=== PATIENT | female | born 1970 | race Caucasian/White ===

== ENCOUNTER 2018-04-12 11:11 | Observation (INO) | payer MEDICAID, SELFPAY ==
[2018-04-09 10:53] LABS: Hematocrit 42.1 % (37-47); Hemoglobin 12.9 g/dl (12.0-15.0); Mean Corp Hgb Conc 30.6 g/gl (32-36); Mean Corpuscular Hgb 28.5 pg (27.0-32.0); Mean Corpuscular Volume 92.9 fL (81-99); Mean Platelet Vol. 10.4 fl (6.2-12.0); Platelet Count 324 K/mm3 (150-450); RBC Distribution Width CV 12.6 % (11.6-14.6); RBC Distribution Width SD 42.4 fl (35.1-43.9); Red Blood Count 4.53 M/mm3 (4.2-5.4); White Blood Count 8.7 K/mm3 (4.4-11.0)
[2018-04-09 10:55] LABS: Scan Indicated on CBC? Y/N NO
[2018-04-12] VITALS (13 sets, daily range): BP systolic 103–163; BP diastolic 63–84; PULSE 50–83; RESP 16–18; TEMP 36.3–37.2; O2SAT 95–100; BMI 21.2
--- NOTE | 2018-04-12 | HYST_PTH ---
PATIENT: LOY SANCHEZ LOC: [facility] U#:[id number] AGE/SX: 47/F ROOM: MS319 RE04/12/[address]: Dr. Yoli Morel MD : [id number] BED: 1 DIS: 04/14/2018 SPEC #: [id number] RECD: 04/12/18 14:33 STATUS: HUNTER REGiuliana #: [id number] MARYLOU: 04/12/18 00:[address]: Yoli Morel DEPT: SURGICAL PATHOLOGY RECD BY: Clifford Archer ENTERED: 04/12/18 14:33 SP TYPE: HYSTERECT OTHR DR: Dr. Argelia Ramires MD No Primary Care Phys Tissues: Uterus, NOS Procedures: Surgery Specimen Level V HEADER OPERATION: Vaginal hysterectomy, bilateral salpingectomy, uterosacral PRE-OP DIAGNOSIS: Menorrhagia, second-degree uterovaginal prolapse, midline cystocele TISSUE SUBMITTED: Uterus, bilateral fallopian tubes MICROSCOPIC DIAGNOSIS Uterus and fallopian tubes, vaginal hysterectomy and bilateral salpingectomy: Cervix ? chronic cystic cervicitis. Endometrium ? inactive endometrium. Focal fibrosis of endometrium. Myometrium ? intramural and submucosal leiomyomas (largest measuring 3.5 cm in greatest dimension). Focal superficial adenomyosis. Bilateral fallopian tubes - no pathologic diagnosis. T-shaped intrauterine device (gross only). SJ:eric 04/13/18 MICROSCOPIC DESCRIPTION Slides are reviewed. GROSS DESCRIPTION Received in fixative is one container labeled with the patient's name and designated uterus and bilateral fallopian tubes. The specimen consists of a hysterectomy specimen consisting of uterus with cervix and detached bilateral fallopian tubes. The uterus with cervix weighs 80 gm and measures 8 x 6 x 4.5 cm. The serosal surface is dale, glistening. The ectocervical mucosa is unremarkable. The external os is circular in contour. A two-prong suture is protruding below the external os. The endocervical canal measures 2.5 cm in length and the endocervical mucosa is unremarkable. The endometrial cavity is compressed to one side and measures 4 cm in length and up to 1.5 cm in width. The endometrial cavity contains a white T-shaped intrauterine device. The vertical arm is present in the endometrial cavity and the T-shaped arm of the IUD is embedded in the superficial portion of the myometrium. The vertical arm measures 3 cm in length and horizontal arm measures 3.5 cm in length and the two-prong suture measures 4 and 4.5 cm in length. The intrauterine device is intact. The endometrial cavity is compressed to one side due to presence of a submucosal to intramural serosal mass. Sections of the uterine wall reveal intramural to submucosal nodular masses. The largest mass measures 3.5 cm in greatest dimension. The uninvolved uterine wall measures up to 2 cm in thickness. Sections of these masses reveal dale whorled cut surfaces without areas of hemorrhage, necrosis or cystic degeneration. One of the fallopian tubes measure 4 cm in length and 0.5 cm in diameter. The fimbrial end is identified. The second fallopian tube measures 3 cm in length and 0.5 cm in diameter. Also present in the container the proximal portion of the second fallopian tube measuring 3.5 cm in length and 0.3 cm in diameter. Sections of both fallopian tubes reveal unremarkable cut surfaces. Band And Cuff Cutter sections are submitted in ten cassettes as follows: 1 - anterior cervix, 2 - posterior cervix, 3 & 4 - anterior uterine wall, section of smaller and intermediate sized nodular masses, 5 & 6 - posterior uterine wall, 7 & 8 ? largest nodular mass, 9 ? one fallopian tube, 10 ? second fallopian tube received in two pieces. / WINTER:eric 04/12/18 TC:1 CPT: 65717
[2018-04-12 08:20] LABS: Internal QC Validated? YES +Cl - CLEAR BKGD; Pregnancy, Urine Negative Negative
[2018-04-12] MEDS: Phenazopyridine 95 MG Tablet 190 MG PO (08:45)
[2018-04-12] MEDS: Celecoxib 200 MG Capsule PO (08:46)
[2018-04-12] MEDS: Gabapentin 600 MG Tablet PO (08:46)
[2018-04-12] MEDS: Acetaminophen 500 MG Tablet 1000 MG PO ×2 (08:46→22:05)
[2018-04-12] MEDS: Ondansetron 8 MG Tablet 16 MG PO (08:46)
--- NOTE | 2018-04-12 12:39 | PCM.OPRPT ---
Report of Operation Date of Procedure: 04/12/18 Pre-Operative Diagnosis: menorrhagia, second degree uterine prolapse, midline cystocele Post-Operative Diagnosis: same Surgery/Procedure Performed:: Total vaginal hysterectomy with bilateral salpingectomy, uterosacral ligament fixation, cystoscopy and episiotomy with repair Description of Surgical Findings:: Small uterus with uterine fibroid noted. Bilateral normal-appearing ovaries. Normal-appearing cervix. Normal-appearing tubes fingerprint expert: Argelia Ramires fingerprint expert: Shayan Gaona Type of Anesthesia:: General Anesthesiologist: Daina Saunders Special Medications: None Specimen's removed: Uterus, cervix, bilateral tubes Drains: Barnett catheter 350 cc yellow urine during the procedure Estimated Blood Loss (mL): 50 Fluids Replaced: 1500cc lr Description of Procedure: The patient was taken to the operating room where she was prepped and draped in the normal sterile fashion in the dorsal lithotomy position. A weighted speculum was placed in the vagina and the anterior lip of the cervix was grasped with a Angel clamp. The vaginal epithelium was infiltrated circumferentially around the cervix with 1% Xylocaine solution. An incision was made around the entire cervix with a scalpel and the vaginal epithelium was dissected back with blunt and sharp dissection. The anterior colpotomy incision was made sharply. Entry into the anterior cul-de-sac was confirmed by visualization of the uterine fundus and bowel behind the uterus. The vaginal introitus was so tight that we did not have significant visualization when we had one retractor and anteriorly to enter posteriorly. There is a tight band at the perineum and the decision was made to do PD anatomy to allow adequate visualization manipulation. The next prolapsed to approximately 1.5 cm beyond the hymenal ring so descent was adequate but vaginal conference was not. After the small episiotomy was made in the midline we are able to place an anterior posterior retractor and proceed The posterior colpotomy was made with the Johnson scissors. The posterior peritoneum was secured to the posterior vaginal cuff with an [id number] 0 Vicryl suture. The Roger retractor was placed in the posterior colpotomy incision. The uterosacral ligaments were clamped with Eda clamps transected and suture ligated on both sides and excellent hemostasis of the pedicles was noted. The cardinal ligaments were clamped transected and suture ligated. The remainder of the cardinal ligament with the uterine arteries was clamped transected and suture ligated. The utero-ovarian ligaments and tubes were clamped transected and suture ligated. The uterus was brought out through the colpotomy incision intact. The left ovary and tube appeared normal. A Sahra clamp was placed across the left tube and it was transected with the Metzenbaum scissors and suture ligated. The same procedure was performed on the contralateral side. The pedicles were all examined again and found to be hemostatic. At this point a Caro's culdoplasty was done with an 0 Vicryl suture. Entering the posterior vaginal cuff the peritoneum was secured reefed across the peritoneum to the right uterosacral ligament, back across the peritoneum to the left uterosacral ligament and back out through the posterior vaginal wall. The bowel was packed away with moist laparotomy sponges and the Breisky retractors were used to allow adequate visualization. On the lateral side a 2-0 PDS suture was placed through the anterior vaginal incision through the uterosacral ligament and back out through the posterior vaginal cuff. A 2-0 Prolene suture was then placed under the vaginal epithelium anteriorly, through slightly higher area of the uterosacral ligament and out through the posterior vaginal wall taking care not completely go through the vaginal epithelium. The same procedure was performed on the lateral side. A third suture was not placed on each side due to difficulty with visualization because of the small vaginal circumference. At this point cystoscopy was done and the bladder was intact and appeared normal. Both ureteral jets were identified. Then he was placed on the uterosacral ligament fixation sutures on both sides and both ureteral jets were again identified. The cystoscopy was completed and the Barnett catheter was replaced. Uterosacral ligament fixation sutures were tied down. The remainder of the vaginal cuff was then reapproximated horizontally with interrupted 0 Vicryl [id number] sutures. The Caro's sutures were tied down. The vaginal cuff was hemostatic and excellent support was noted. I closed the episiotomy with 3-0 Vicryl repeat suture in a running standard fashion. Care was taken to reapproximate the perineal body and then the vaginal and perineal epithelium were closed in a subcuticular fashion. The Barnett was left to straight drain. The vaginal sweep was completed by me. All sponge lap and needle counts were correct. Patient was awakened and taken to theher recovery room in stable condition. Grafts/Implants Used: None - Complications None
--- NOTE | 2018-04-12 12:47 | OP.PCM_ITS ---
Report of Operation Date of Procedure: 04/12/18 Pre-Operative Diagnosis: menorrhagia, second degree uterine prolapse, midline cystocele Post-Operative Diagnosis: same Surgery/Procedure Performed:: Total vaginal hysterectomy with bilateral salpingectomy, uterosacral ligament fixation, cystoscopy and episiotomy with repair Description of Surgical Findings:: Small uterus with uterine fibroid noted. Bilateral normal-appearing ovaries. Normal-appearing cervix. Normal-appearing tubes liquor bridge operator helper: Argelia Ramires liquor bridge operator helper: Shayan Gaona Type of Anesthesia:: General Anesthesiologist: Daina Saunders Special Medications: None Specimen's removed: Uterus, cervix, bilateral tubes Drains: Barnett catheter 350 cc yellow urine during the procedure Estimated Blood Loss (mL): 50 Fluids Replaced: 1500cc lr Description of Procedure: The patient was taken to the operating room where she was prepped and draped in the normal sterile fashion in the dorsal lithotomy position. A weighted speculum was placed in the vagina and the anterior lip of the cervix was grasped with a Angel clamp. The vaginal epithelium was infiltrated circumferentially around the cervix with 1% Xylocaine solution. An incision was made around the entire cervix with a scalpel and the vaginal epithelium was dissected back with blunt and sharp dissection. The anterior colpotomy incision was made sharply. Entry into the anterior cul-de-sac was confirmed by visualization of the uterine fundus and bowel behind the uterus. The vaginal introitus was so tight that we did not have significant visualization when we had one retractor and anteriorly to enter posteriorly. There is a tight band at the perineum and the decision was made to do PD anatomy to allow adequate visualization manipulation. The next prolapsed to approximately 1.5 cm beyond the hymenal ring so descent was adequate but vaginal conference was not. After the small episiotomy was made in the midline we are able to place an anterior posterior retractor and proceed The posterior colpotomy was made with the Johnson scissors. The posterior peritoneum was secured to the posterior vaginal cuff with an [id number] 0 Vicryl suture. The Roger retractor was placed in the posterior colpotomy incision. The uterosacral ligaments were clamped with Eda clamps transected and suture ligated on both sides and excellent hemostasis of the pedicles was noted. The cardinal ligaments were clamped transected and suture ligated. The remainder of the cardinal ligament with the uterine arteries was clamped transected and suture ligated. The utero-ovarian ligaments and tubes were clamped transected and suture ligated. The uterus was brought out through the colpotomy incision intact. The left ovary and tube appeared normal. A Sahra clamp was placed across the left tube and it was transected with the Metzenbaum scissors and suture ligated. The same procedure was performed on the contralateral side. The pedicles were all examined again and found to be hemostatic. At this point a Caro's culdoplasty was done with an 0 Vicryl suture. Entering the posterior vaginal cuff the peritoneum was secured reefed across the peritoneum to the right uterosacral ligament, back across the peritoneum to the left uterosacral ligament and back out through the posterior vaginal wall. The bowel was packed away with moist laparotomy sponges and the Breisky retractors were used to allow adequate visualization. On the lateral side a 2- 0 PDS suture was placed through the anterior vaginal incision through the uterosacral ligament and back out through the posterior vaginal cuff. A 2-0 Prolene suture was then placed under the vaginal epithelium anteriorly, through slightly higher area of the uterosacral ligament and out through the posterior vaginal wall taking care not completely go through the vaginal epithelium. The same procedure was performed on the lateral side. A third suture was not placed on each side due to difficulty with visualization because of the small vaginal circumference. At this point cystoscopy was done and the bladder was intact and appeared normal. Both ureteral jets were identified. Then he was placed on the uterosacral ligament fixation sutures on both sides and both ureteral jets were again identified. The cystoscopy was completed and the Barnett catheter was replaced. Uterosacral ligament fixation sutures were tied down. The remainder of the vaginal cuff was then reapproximated horizontally with interrupted 0 Vicryl xqeiiv-vu-xrhed sutures. The Caro's sutures were tied down. The vaginal cuff was hemostatic and excellent support was noted. I closed the episiotomy with 3-0 Vicryl repeat suture in a running standard fashion. Care was taken to reapproximate the perineal body and then the vaginal and perineal epithelium were closed in a subcuticular fashion. The Barnett was left to straight drain. The vaginal sweep was completed by me. All sponge lap and needle counts were correct. Patient was awakened and taken to theher recovery room in stable condition. Grafts/Implants Used: None - Complications None
[2018-04-12] MEDS: Ketorolac 30 MG/ML Syringe IV ×2 (13:00→17:46)
--- NOTE | 2018-04-12 15:08 | PCM.DC.VHY ---
Discharge Diet: No Restrictions Discharge Activity: Return to Normal Activity, May Not Drive - while taking narcotic pain medications., May Shower May resume sexual activity in: 6-8 weeks Call your doctor if your incision/area has: Continuous Slow Oozing, Sudden Increased Bleeding, Increased Pain/ Swelling, Increased Redness, Foul Smelling Discharge Call your doctor if you observe: Fever of 101 or Higher, Inability to urinate, Inability to have a bowel movement, Using more than one pad per hour Cleanse incision/area with: Soap & Water, - - Your incision has skin glue. It can get wet. Leave the skin glue on for 10-14 days or until it falls off on its own. Allergies/Adverse Reactions: Allergies hydrocodone bitartrate [From Vicodin] Allergy (Verified 12/10/15 17:41) Unknown ibuprofen Allergy (Verified 12/10/15 17:41) Unknown oxycodone HCl [From Percocet] Allergy (Verified 12/10/15 17:41) Unknown Penicillins Allergy (Verified 12/10/15 17:41) Unknown Medications to take at Discharge Tumeric 2,000 mg PO DAILY 04/05/18 Naproxen Sodium/Pseudoephedrin [Aleve-D Sinus and Cold Caplet] 1 each PO BID PRN 04/12/18 Primary Care Physician: Care Physician,No Primary [Primary Care Provider] - Please Follow Up With: Yoli Morel MD - [phone] When: 1-2 and 6 weeks or as needed
[2018-04-12] MEDS: Lactated Ringers 1,000 ML 125 ML IV (16:34)
[2018-04-12] MEDS: Docusate Sodium 100 MG Capsule PO (22:05)
[2018-04-12] MEDS: Senna/Docusate Sodium 1 Tablet PO (22:05)
[2018-04-12] MEDS: traMADol 50 MG Tablet PO (22:06)
[2018-04-12] MEDS: busPIRone 5 MG Tablet PO (22:13)
[2018-04-13] MEDS: Lactated Ringers 1,000 ML 125 ML IV (00:10)
[2018-04-13] MEDS: Ketorolac 30 MG/ML Syringe IV ×2 (00:59→06:28)
[2018-04-13] MEDS: HYDROmorphone 1 MG/ML Syringe IV (02:07)
[2018-04-13 03:09] VITALS: BP 100/59; PULSE 80; RESP 14; TEMP 36.5; O2SAT 97
[2018-04-13] MEDS: Acetaminophen 500 MG Tablet 1000 MG PO ×3 (06:28→21:09)
[2018-04-13] MEDS: busPIRone 5 MG Tablet PO ×2 (06:28→21:09)
[2018-04-13 06:33] LABS: Hematocrit 32.8 % (37-47); Hemoglobin 10.3 g/dl (12.0-15.0); Mean Corp Hgb Conc 31.4 g/gl (32-36); Mean Corpuscular Hgb 29.6 pg (27.0-32.0); Mean Corpuscular Volume 94.3 fL (81-99); Mean Platelet Vol. 10.5 fl (6.2-12.0); Platelet Count 233 K/mm3 (150-450); RBC Distribution Width CV 12.3 % (11.6-14.6); RBC Distribution Width SD 41.2 fl (35.1-43.9); Red Blood Count 3.48 M/mm3 (4.2-5.4)
[2018-04-13 06:34] LABS: Scan Indicated on CBC? Y/N NO
[2018-04-13 07:09] VITALS: O2SAT 97
--- NOTE | 2018-04-13 08:09 | PCM.PN.OB ---
Subjective: Pain under control this morning, small amount of vaginal bleeding. No chest pain or palpitations. Nausea or vomiting. Has been able to void. - Physical Exam General: Alert, Cooperative, No apparent distress Abdomen: Soft, Distended - Moderately, softly,, Tender - appropritely Extremities: Edema - 1+ Vital Signs Temp Pulse Resp BP Pulse Ox 97.7 F L 80 14 100/59 L 97 04/13/18 03:09 04/13/18 03:09 04/13/18 03:09 04/13/18 03:09 04/13/18 07:09 Oxygen Flow Rate (L/min) 2 Oxygen Delivery Method Room Air Weight: 54.431 kg Body Mass Index (BMI) 21.2 Intake and Output for Last 24 Hours 04/11/18 04/12/18 04/13/18 23:59 23:59 23:59 Intake Total 3231 / 3231 2704 / 2704 Output Total 425 / 425 1550 / 1550 Balance 2806 / 2806 1154 / 1154 Laboratory Tests Past 24 Hrs 04/12/18 04/13/18 08:12 06:04 WBC 16.0 H RBC 3.48 L Hgb 10.3 L Hct 32.8 L MCV 94.3 MCH 29.6 MCHC 31.4 L RDW 12.3 RDW Differential 41.2 Plt Count 233 MPV 10.5 Urine Test Negative Medical Necessity - Tobacco Use Smoking Status: Former smoker Assessment/Plan Postoperative day #1 status post total vaginal hysterectomy with uterosacral ligament fixation. Patient is doing well, she is hemodynamically stable. She is ambulating, tolerating regular diet, and has voided spontaneously. She is ready for discharge. Post op instructions reviewed. She has her prescriptions that I gave her in the office for pain control. Reviewed operative findings. Her questions were answered to her satisfaction
[2018-04-13 08:16] VITALS: BP 105/60; PULSE 67; RESP 18; TEMP 36.7; O2SAT 98
[2018-04-13] MEDS: traMADol 50 MG Tablet PO ×3 (08:24→21:10)
[2018-04-13] MEDS: Senna/Docusate Sodium 1 Tablet PO (08:24)
[2018-04-13] MEDS: Docusate Sodium 100 MG Capsule PO (08:25)
--- NOTE | 2018-04-13 11:25 | NURSING ---
Pt tearful at this time, complaining of pain. Pt also complains of nausea. Pt has not voided since myers removal, bladder scan done at this time and 175cc urine. Will call OB office to speak with physician.
[2018-04-13] MEDS: Ondansetron 4 MG/2 ML Vial IV (11:44)
[2018-04-13] MEDS: 0.9% NaCl Peripheral Flush Adult/Peds IV (11:44)
[2018-04-13 11:47] VITALS: BP 105/69; PULSE 60; RESP 18; TEMP 36.8; O2SAT 99
--- NOTE | 2018-04-13 11:50 | NURSING ---
Pt still tearful at this time. Zofran given. Pt states she feels foggy, VS WNL.
[2018-04-13] MEDS: Ketorolac 10 MG Tablet PO ×2 (12:27→17:12)
[2018-04-13 17:38] VITALS: BP 130/80; PULSE 65; RESP 18; TEMP 36.5; O2SAT 98
[2018-04-13 19:47] VITALS: BP 113/71; PULSE 62; RESP 16; TEMP 37.1; O2SAT 92
--- NOTE | 2018-04-13 19:53 | NURSING ---
Pt voiding 200cc, bladder scanned for 553cc. Pt states still feels like she has to void and is attempting to void again. will recheck bladder scan after.
--- NOTE | 2018-04-13 21:02 | NURSING ---
attempted to straight cath pt per MD orders bc bladder scan >500. Unsuccessful attempt, pt now up voiding again. Will bladder scan after this void.
[2018-04-14] MEDS: Ketorolac 10 MG Tablet PO ×2 (01:06→07:02)
--- NOTE | 2018-04-14 01:23 | NURSING ---
Pt voiding larger amounts, states feels like her bladder is empty now. States feels better than earlier. Will continue to monitor.
[2018-04-14 01:47] VITALS: BP 103/63; PULSE 73; RESP 18; TEMP 36.9; O2SAT 93
[2018-04-14] MEDS: busPIRone 5 MG Tablet PO (07:02)
[2018-04-14] MEDS: Acetaminophen 500 MG Tablet 1000 MG PO (07:03)
--- NOTE | 2018-04-14 07:40 | NURSING ---
Emptied patient's hat in toilet for 900cc of urine, patient states it was from 2 different voids. Pt states feels much better and like her bladder is empty, refused to be bladder scanned.
[2018-04-14 07:52] VITALS: BP 104/65; PULSE 63; RESP 18; TEMP 36.8; O2SAT 96
--- NOTE | 2018-04-14 08:42 | PCM.PN.OB ---
Subjective: Patient feels well. She is urinating better & denies concerns. - Physical Exam General: Alert, Oriented x3 Abdomen: Soft, Non Tender, Non-Distended Extremities: No Calf Tenderness Vital Signs Temp Pulse Resp BP Pulse Ox 98.2 F 63 18 104/65 96 04/14/18 07:52 04/14/18 07:52 04/14/18 07:52 04/14/18 07:52 04/14/18 07:52 Oxygen Flow Rate (L/min) 2 Oxygen Delivery Method Room Air Weight: 120 lb Body Mass Index (BMI) 21.2 Intake and Output for Last 24 Hours 04/12/18 04/13/18 04/14/18 23:59 23:59 23:59 Intake Total 3231 / 3231 6904 / 6904 440 / 440 Output Total 425 / 425 3125 / 3125 3250 / 3250 Balance 2806 / 2806 3779 / 3779 -2810 / -2810 Medical Necessity - Tobacco Use Smoking Status: Former smoker Assessment/Plan POD#2 s/p TVH with uterosacral suspension Plan for d/c home once blader scan confirms no urinary retention F/u as scheduled or PRN
[2018-04-14] MEDS: Docusate Sodium 100 MG Capsule PO (09:19)
[2018-04-14] MEDS: Senna/Docusate Sodium 1 Tablet PO (09:19)
[2018-04-14] MEDS: Enoxaparin 40 MG/0.4 ML Syringe SC (09:19)
--- NOTE | 2018-04-14 09:39 | NURSING ---
PT VOIDED 300ML. BLADDER SCAN = 287ML. DR Christian MIRANDA NOTIFIED. NEW ORDERS RECEIVED.
[2018-04-14 10:31] VITALS: BP 104/65; PULSE 63; RESP 18; TEMP 36.8; O2SAT 96
== END 2018-04-14 10:31 | disposition home or self-care (01) ==
LOC: MS2 04-13 06:54 → MS3 04-13 17:12
PROVIDERS: Obstetrics & Gynecology; Admitting Provider Obstetrics & Gynecology; Visit Provider Obstetrics & Gynecology
PROC: (CPT 58260; principal; 2018-04-12 09:15)
DX: N81.2 Incomplete uterovaginal prolapse (principal); F41.9 Anxiety disorder, unspecified; N81.11 Cystocele, midline; D25.1 Intramural leiomyoma of uterus; D25.0 Submucous leiomyoma of uterus; N80.0 Endometriosis of uterus; N72 Inflammatory disease of cervix uteri; Z87.891 Personal history of nicotine dependence
CPT/HCPCS: 00940; 57283; 58262; 36415; 81025; 85027; 86850; 86900; 88307; 96361; 96372; 96374; 96375; 96376; 99218; J7120; A4216; G0378; G0379; J2405

== ENCOUNTER 2018-09-22 15:52 | Emergency (ER) | payer MEDICAID, SELFPAY ==
[2018-09-22 15:53] VITALS: BP 117/76; PULSE 69; RESP 18; TEMP 36.4; O2SAT 100; BMI 22.8
--- NOTE | 2018-09-22 16:14 | ED.DCSUM_ITS ---
- ER Visit Summary Date of Service: 09/22/18 Chief Complaint: [Left eyelid redness and swelling] History of Present Illness: The patient is a 47 F [presents to the emergency department with complaint of left eyelid redness and swelling that started 2 days ago. Patient states that she used a new eye gel to her entire face the night before and she is not sure if it is related. Patient denies any fever. She denies any eye pain. She denies any visual changes.] Physical Examination: [HEENT-PERRLA, EOMI. Cranial nerves II through XII grossly intact. TMs clear. Mucous membranes moist. No adenopathy. Left lower eyelid does have soft tissue swelling and erythema. There is some cellulitic changes to the lower lid. Patient has painless extraocular eye movements. Conjunctiva normal. It appears to have a hordeolum to the left lower medial lid. Cardiovascular-regular rate and rhythm without murmur or ectopy Lungs-clear to auscultation, chest wall stable without crepitus or subcu emphysema Abdomen-normoactive bowel sounds, soft, nontender, no rebound or rigidity, no pe ritoneal signs. Extremities-intact ?4, normal range of motion, normal pulses, atraumatic] Test Results: [None indicated] Emergency Department Course and Treatment: [She was started on gentamicin ophthalmic ointment as well as Keflex.] Treatment Plan: [Patient advised to use warm compresses and will be given a p rescription for Keflex and gentamicin topical ointment. Patient will be advised to follow-up with ophthalmology] Disposition: [Discharged home in stable condition] Impression: [Hordeolum/stye left lower eyelid] This note was generated with [employer] dictation software. It may contain incorrect words, spelling, and punctuation that were not noted in review of the chart prior to signing ED Disposition - Plan for ED Patient: Chief Complaint: Eye Problem Referrals: Care Physician,No Primary [Primary Care Provider] -
--- NOTE | 2018-09-22 16:14 | ED.DEP ---
ED Disposition - Plan for ED Patient: Chief Complaint: Eye Problem Instructions: ED Hordeolum Prescriptions: Cephalexin [Keflex] 500 mg PO Q6 #40 cap Referrals: Care Physician,No Primary [Primary Care Provider] - Tyrone Gomes MD [STAFF PHYSICIAN] - 3-5 Days
[2018-09-22] MEDS: Cephalexin 250 MG Capsule 500 MG PO (17:00)
--- OUTSIDE RECORDS SUMMARY | 2018-11-16 21:21 | XMS RPT_ITS ---
:1970 Author Organization [facility] Care Team Providers Name Role Phone MARGE LEIJA Attending Unavailable MARGE LEIJA Attending Unavailable MARGE LEIJA Attending Unavailable CLIFF CINTRON Attending Unavailable MARGE LEIJA Attending Unavailable MARGE LEIJA Attending Unavailable Primay Care Physicia, No Primary Care Unavailable Marge Leija Attending Unavailable Marge Leija Referring Unavailable Cliff Ramires Consulting Unavailable Mareg Leija Admitting Unavailable Primay Care Physicia, No Primary Care Unavailable Bernie Collins Attending Unavailable PROBLEMS PROBLEMS No Problem Records FoundPROCEDURES PROCEDURES No Procedure Records FoundRESULTS RESULTS DISCHARGE INSTRUCTION Observed: 09/22/2018 Status: F Source: [place] 4:15 PM [facility] REPOSITORY [facility] Medical Records Department [address] [place] [address] Discharge Instruction 09/22/18 1614 MR#: [id number] Acct: [id number] Name: BRITTA NAJERA Rep #: [id number] : 1970 47 From: Bernie Collins DO PCP: Care Physician, No Primary Status: PRE ER ED Disposition - Plan for ED Patient: Chief Complaint: Eye Problem Instructions: ED Hordeolum Prescriptions: Cephalexin [Keflex] 500 mg PO Q6 #40 cap Referrals: Care Physician,No Primary [Primary Care Provider] - Tyrone Gomes MD [STAFF PHYSICIAN] - 3-5 Days What to do if you have Problems For any increased pain, shortness of breath, bleeding, nausea or vomiting, chest pain, or any unexpected problems, contact your Primary Care Provider. Call [facility] ([phone]) or report to the closest Emergency Room. Call 911 if necessary. 09/22/18 1615 <Electronically signed by Bernie Collins DO> Date Bernie Collins DO Cosigner Signature (If Indicated): Date CC: No Primary Care Physician EMERGENCY DEPARTMENT Observed: 09/22/2018 Status: F Source: [place] SUMMARY 4:14 PM [facility] Medical Records Department [address] [place] [address] Emergency Department Summary 09/22/18 1612 MR#: [id number] Acct: [id number] Name: BRITTA NAJERA Rep #: [id number] : 1970 47 From: Bernie Collins DO PCP: Care Physician, No Primary Status: PRE ER - ER Visit Summary Date of Service: 09/22/18 Chief Complaint: [Left eyelid redness and swelling] History of Present Illness: The patient is a 47 F [presents to the emergency department with complaint of left eyelid redness and swelling that started 2 days ago. Patient states that she used a new eye gel to her entire face the night before and she is not sure if it is related. Patient denies any fever. She denies any eye pain. She denies any visual changes.] Physical Examination: [HEENT-PERRLA, EOMI. Cranial nerves II through XII grossly intact. TMs clear. Mucous membranes moist. No adenopathy. Left lower eyelid does have soft tissue swelling and erythema. There is some cellulitic changes to the lower lid. Patient has painless extraocular eye movements. Conjunctiva normal. It appears to have a hordeolum to the left lower medial lid. Cardiovascular-regular rate and rhythm without murmur or ectopy Lungs-clear to auscultation, chest wall stable without crepitus or subcu emphysema Abdomen-normoactive bowel sounds, soft, nontender, no rebound or rigidity, no peritoneal signs. Extremities-intact 4, normal range of motion, normal pulses, atraumatic] Test Results: [None indicated] Emergency Department Course and Treatment: [She was started on gentamicin ophthalmic ointment as well as Keflex.] Treatment Plan: [Patient advised to use warm compresses and will be given a prescription for Keflex and gentamicin topical ointment. Patient will be advised to follow-up with ophthalmology] Disposition: [Discharged home in stable condition] Impression: [Hordeolum/stye left lower eyelid] This note was generated with [employer] dictation software. It may contain incorrect words, spelling, and punctuation that were not noted in review of the chart prior to signing ED Disposition - Plan for ED Patient: Chief Complaint: Eye Problem Referrals: Care Physician,No Primary [Primary Care Provider] - What to do if you have Problems For any increased pain, shortness of breath, bleeding, nausea or vomiting, chest pain, or any unexpected problems, contact your Primary Care Provider. Call [facility] ([phone]) or report to the closest Emergency Room. Call 911 if necessary. 09/22/18 1414 <Electronically signed by Bernie Collins DO> Date Bernie Collins DO Cosigner Signature (If Indicated): Date CC: No Primary Care Physician NAMITA Observed: 07/10/2018 Status: COMPLETED Source: [place] 2:00 PM [facility] RE[facility] Office Visit (WOOB) BRITTA NAJERA ([id number]) 1970 F Date Time Provider Department 07/10/18 2:00 PM MARGE LEIJA During your visit today, we recorded the following information about you: Blood pressure Weight 106/60 55.8 kg Marge Leija MD 07/10/2018 2:20 PM Signed Post-op visit Britta Najera is a 47 year old female who underwent TVH, bilateral salpingectomy, mccalls and uterosacral ligament fixation on 04/12/18 for prolapse, menorrhagia Her immediate post-op course was uncomplicated and she was discharged home from [facility] on post-op day #1. Is anxious something is falling down. Reynaldo. after being on her feet a lot. Symptoms since surgery: Fever/chills: No. Vaginal bleeding: No. Pain: some pelvic pressure Bladder complaints: No. Bowel complaints: some constipation Other issues: No. Reviewed and updated past medical, surgical, family, social history, medications and allergies. LMP 11/29/2013 GENERAL: pleasant, female in no apparent distress ABDOMEN: soft, non-tender and no masses INCISIONS: N/A PELVIC: external genitalia normal, normal Bartholin's glands, urethra, Justice's glands, no vulvar lesions, good vaginal support, physiologic discharge present, normal appearing perineal body and perianal region, cervix surgically absent, cuff intact, nontender, BIMANUAL: no adnexal masses, non-tender and uterus surgically absent NEURO: alert and oriented x3,exam grossly non-focal EXTREMITIES: normal Assessment: 47 year old doing well s/p TVH 1) Operative findings and pathology were reviewed with the patient and all questions were answered. Additional follow up or treatment indicated: none 2) Return for Annual exam or sooner as needed Marge Leija MD Referring Provider: SELF [200] Allergies As of Date: 07/10/2018 Noted Allergy Reaction FLAGYL (METRONIDAZOLE HCL) 06/18/2005 PENICILLINS 06/18/2005 16 - Unknown Comments: bloating, IBUPROFEN 11/15/2013 2 - Rash Comments: but can take naproxyn, gets cysts LEXAPRO (ESCITALOPRAM OXALATE) 06/18/2005 5 - Intolerance Comments: wt gain ZOLOFT (SERTRALINE HCL) 06/18/2005 5 - Intolerance Comments: wt gain Date Reviewed: 07/10/2018 Reviewed by: Marge Leija - Fully Assessed Reason for Visit: Post Op [174] Cmt: 6 week- weight gain Primary Visit Diagnosis:Postop check [Z09] Prescriptions as of 07/10/2018 Sig: ALEVE-D SINUS AND COLD ORAL Take by mouth. BUSPIRONE 5 MG TABLET Take 1 tablet by mouth three * Problem List As Of Date 07/10/2018 Noted Resolved Premenopausal menorrhagia [N92.4] INVALID FOR* IUD (intrauterine device) in place [Z97.5] INVALID FOR*12/20/2013 Complete uterine prolapse [N81.3] INVALID FOR* Cystocele, midline [N81.11] INVALID FOR* Encounter Status:Closed by MARGE LEIJA MD on 07/10/18 PROGRESS Observed: 07/10/2018 Status: COMPLETED Source: [place] 1:50 PM [facility] [place] REPOSITORY HNO ID: [id number] Author: Marge Leija Service: (none) Author Type: Physician Type: Progress Notes Filed: 07/10/2018 2:20 PM Note Text: Post-op visit Britta Najera is a 47 year old female who underwent TVH, bilateral salpingectomy, mccalls and uterosacral ligament fixation on 04/12/18 for prolapse, menorrhagia Her immediate post-op course was uncomplicated and she was discharged home from [facility] on post-op day #1. Is anxious something is falling down. Reynaldo. after being on her feet a lot. Symptoms since surgery: Fever/chills: No. Vaginal bleeding: No. Pain: some pelvic pressure Bladder complaints: No. Bowel complaints: some constipation Other issues: No. Reviewed and updated past medical, surgical, family, social history, medications and allergies. LMP 11/29/2013 GENERAL: pleasant, female in no apparent distress ABDOMEN: soft, non-tender and no masses INCISIONS: N/A PELVIC: external genitalia normal, normal Bartholin's glands, urethra, Justice's glands, no vulvar lesions, good vaginal support, physiologic discharge present, normal appearing perineal body and perianal region, cervix surgically absent, cuff intact, nontender, BIMANUAL: no adnexal masses, non-tender and uterus surgically absent NEURO: alert and oriented x3,exam grossly non-focal EXTREMITIES: normal Assessment: 47 year old doing well s/p TVH 1) Operative findings and pathology were reviewed with the patient and all questions were answered. Additional follow up or treatment indicated: none 2) Return for Annual exam or sooner as needed Marge Leija MD PROGRESS Observed: 05/22/2018 Status: COMPLETED Source: [place] 3:07 PM [facility] REPOSITORY HNO ID: [id number] Author: Marge Leija Service: (none) Author Type: Physician Type: Progress Notes Filed: 05/22/2018 3:29 PM Note Text: DATE OF SERVICE: 05/22/2018 PROBLEM: Britta Najera presents for postop visit. SUBJECTIVE/INTERVAL HISTORY: Britta Najera reports that she feels well. No fever or chills. No shortness of breath, cough, or chest pain. No incisional redness, swelling, or drainage. Patient reports that her appetite is good. BM and urination ok. Has some skin at perinuem she is questioning if is healed. . OBJECTIVE: ABDOMEN: Abdomen soft, non-tender, no hepatosplenomegaly. PELVIC: External genitalia normal. Vagina normal on speculum exam. Uterus, cervix, adnexa surgically absent. No urethral, bladder or pelvic masses. Cuff smooth. Cul de sac negative on rectal exam. No rectal masses. Perineum intact. Some sutures still present at apex, no granulation tissue. Labium majorum and minorum ASSESSMENT: Post op visit s/p TVH, USLF PLAN: 1. Discussed results of pathology and implications with patient. 2. Postop restrictions reviewed. Marge Leija MD CNOV Observed: 05/22/2018 Status: COMPLETED Source: [place] 3:00 PM [facility] REPOSITORY Office Visit (WOOB) BRITTA NAJERA ([id number]) 1970 F Date Time Provider Department 05/22/18 3:00 PM MARGE LEIJA During your visit today, we recorded the following information about you: Blood pressure Weight 102/60 54.9 kg Marge Leija MD 05/22/2018 3:29 PM Signed DATE OF SERVICE: 05/22/2018 PROBLEM: Britta Najera presents for postop visit. SUBJECTIVE/INTERVAL HISTORY: Britta Najera reports that she feels well. No fever or chills. No shortness of breath, cough, or chest pain. No incisional redness, swelling, or drainage. Patient reports that her appetite is good. BM and urination ok. Has some skin at perinuem she is questioning if is healed. . OBJECTIVE: ABDOMEN: Abdomen soft, non-tender, no hepatosplenomegaly. PELVIC: External genitalia normal. Vagina normal on speculum exam. Uterus, cervix, adnexa surgically absent. No urethral, bladder or pelvic masses. Cuff smooth. Cul de sac negative on rectal exam. No rectal masses. Perineum intact. Some sutures still present at apex, no granulation tissue. Labium majorum and minorum ASSESSMENT: Post op visit s/p TVH, USLF PLAN: 1. Discussed results of pathology and implications with patient. 2. Postop restrictions reviewed. Marge Leija MD Referring Provider: SELF [200] Allergies As of Date: 05/22/2018 Noted Allergy Reaction FLAGYL (METRONIDAZOLE HCL) 06/18/2005 PENICILLINS 06/18/2005 16 - Unknown Comments: bloating, IBUPROFEN 11/15/2013 2 - Rash Comments: but can take naproxyn, gets cysts LEXAPRO (ESCITALOPRAM OXALATE) 06/18/2005 5 - Intolerance Comments: wt gain ZOLOFT (SERTRALINE HCL) 06/18/2005 5 - Intolerance Comments: wt gain Date Reviewed: 05/22/2018 Reviewed by: Marge Leija - Fully Assessed Primary Visit Diagnosis:Postop check [Z09] Prescriptions as of 05/22/2018 Sig: ALEVE-D SINUS AND COLD ORAL Take by mouth. BUSPIRONE 5 MG TABLET Take 1 tablet by mouth three * Problem List As Of Date 05/22/2018 Noted Resolved Premenopausal menorrhagia [N92.4] INVALID FOR* IUD (intrauterine device) in place [Z97.5] INVALID FOR*12/20/2013 Complete uterine prolapse [N81.3] INVALID FOR* Cystocele, midline [N81.11] INVALID FOR* Medications Discontinued During This Encounter tramadol HCl (TRAMADOL ORAL) 05/22/2018 Class: Historical Med Route: ORAL Sig: Take by mouth. Disc: Course of therapy completed levonorgestrel (MIRENA) 20 mcg/24 hr* 05/22/2018 Class: Historical Med Route: INTRAUTERINE Si Each by INTRAUTERINE route one time only. Disc: Course of therapy completed Encounter Status:Closed by MARGE LEIJA MD on 05/22/18 CNOV Observed: 04/30/2018 Status: COMPLETED Source: [place] 3:15 PM [facility] REPOSITORY Office Visit (WOOB) BRITTA NAJERA ([id number]) 1970 F Date Time Provider Department 04/30/18 3:15 PM CLIFF CINTRON WOOB During your visit today, we recorded the following information about you: Blood pressure Weight 94/50 53.5 kg Cliff Ramires MD 04/30/2018 3:39 PM Signed SUBJECTIVE: 47 year old female presents for 2 week post-op exam. Was concerned with vaginal tissue tearing open and having some discharge. Pt denies pain. OBJECTIVE: Incision: episiotomy site healing well- no signs of infection. Non tender to palpation. Gen: female in NAD PLAN: RTO for 6 week check I have reviewed and updated past medical and surgical history, medications and allergies. Cliff Ramires MD Referring Provider: SELF [200] Allergies As of Date: 04/30/2018 Noted Allergy Reaction FLAGYL (METRONIDAZOLE HCL) 06/18/2005 PENICILLINS 06/18/2005 16 - Unknown Comments: bloating, IBUPROFEN 11/15/2013 2 - Rash Comments: but can take naproxyn, gets cysts LEXAPRO (ESCITALOPRAM OXALATE) 06/18/2005 5 - Intolerance Comments: wt gain ZOLOFT (SERTRALINE HCL) 06/18/2005 5 - Intolerance Comments: wt gain Date Reviewed: 04/23/2018 Reviewed by: Marge Leija - Fully Assessed Reason for Visit: Post Op [174] Cmt: feels like the incision is open Primary Visit Diagnosis:Post-operative state [Z98.890] Prescriptions as of 04/30/2018 Sig: TRAMADOL ORAL Take by mouth. ALEVE-D SINUS AND COLD ORAL Take by mouth. BUSPIRONE 5 MG TABLET Take 1 tablet by mouth three * NAPROXEN 500 MG TABLET Take 1 tablet by mouth three * LEVONORGESTREL 20 MCG/24 HR (* 1 Each by INTRAUTERINE route * Problem List As Of Date 04/30/2018 Noted Resolved Premenopausal menorrhagia [N92.4] INVALID FOR* IUD (intrauterine device) in place [Z97.5] INVALID FOR*12/20/2013 Complete uterine prolapse [N81.3] INVALID FOR* Cystocele, midline [N81.11] INVALID FOR* Encounter Status:Closed by CLIFF SORTO MD on 04/30/18 PROGRESS Observed: 04/30/2018 Status: COMPLETED Source: [place] 2:54 PM [facility] REPOSITORY HNO ID: [id number] Author: Cliff Sorto Service: (none) Author Type: Physician Type: Progress Notes Filed: 04/30/2018 3:39 PM Note Text: SUBJECTIVE: 47 year old female presents for 2 week post-op exam. Was concerned with vaginal tissue tearing open and having some discharge. Pt denies pain. OBJECTIVE: Incision: episiotomy site healing well- no signs of infection. Non tender to palpation. Gen: female in NAD PLAN: RTO for 6 week check I have reviewed and updated past medical and surgical history, medications and allergies. Cliff Ramires MD CNOV Observed: 04/23/2018 Status: COMPLETED Source: [place] 10:10 AM [facility] Office Visit (WOOB) BRITTA NAJERA ([id number]) 1970 F Date Time Provider Department 04/23/18 10:10 AM MARGE LEIJA WOOB During your visit today, we recorded the following information about you: Blood pressure Weight 110/68 53.3 kg Marge Leija MD 04/23/2018 10:27 AM Signed DATE OF SERVICE: 04/23/2018 PROBLEM: Britta Najera presents for postop visit. SURGERY AND DATE: Vaginal Hysterectomy, Bilateral Salpingectomy, Uterosacral on 04/12/18 PATHOLOGY: benign, pending SUBJECTIVE/INTERVAL HISTORY: Britta Najera reports that she feels well. No fever or chills. No shortness of breath, cough, or chest pain. No incisional redness, swelling, or drainage. Patient reports that her appetite is good. OBJECTIVE: general- awake, alert, NAD ASSESSMENT: postop TVH, bilateral salpingectomy, USLF, Caro's culdoplasty PLAN: 1. Discussed results of pathology and implications with patient. 2. Postop restrictions reviewed. Marge Leija MD Referring Provider: SELF [200] Allergies As of Date: 04/23/2018 Noted Allergy Reaction FLAGYL (METRONIDAZOLE HCL) 06/18/2005 PENICILLINS 06/18/2005 16 - Unknown Comments: bloating, IBUPROFEN 11/15/2013 2 - Rash Comments: but can take naproxyn, gets cysts LEXAPRO (ESCITALOPRAM OXALATE) 06/18/2005 5 - Intolerance Comments: wt gain ZOLOFT (SERTRALINE HCL) 06/18/2005 5 - Intolerance Comments: wt gain Date Reviewed: 04/23/2018 Reviewed by: Marge Leija - Fully Assessed Reason for Visit: Post Op [174] Primary Visit Diagnosis:Postop check [Z09] Prescriptions as of 04/23/2018 Sig: TRAMADOL ORAL Take by mouth. ALEVE-D SINUS AND COLD ORAL Take by mouth. BUSPIRONE 5 MG TABLET Take 1 tablet by mouth three * NAPROXEN 500 MG TABLET Take 1 tablet by mouth three * LEVONORGESTREL 20 MCG/24 HR (* 1 Each by INTRAUTERINE route * Problem List As Of Date 04/23/2018 Noted Resolved Premenopausal menorrhagia [N92.4] INVALID FOR* IUD (intrauterine device) in place [Z97.5] INVALID FOR*12/20/2013 Complete uterine prolapse [N81.3] INVALID FOR* Cystocele, midline [N81.11] INVALID FOR* Encounter Status:Closed by MARGE LEIJA MD on 04/23/18 PROGRESS Observed: 04/23/2018 Status: COMPLETED Source: [place] 10:00 AM [facility] REPOSITORY HNO ID: [id number] Author: Marge Leija Service: (none) Author Type: Physician Type: Progress Notes Filed: 04/23/2018 10:27 AM Note Text: DATE OF SERVICE: 04/23/2018 PROBLEM: Britta Najera presents for postop visit. SURGERY AND DATE: Vaginal Hysterectomy, Bilateral Salpingectomy, Uterosacral on 04/12/18 PATHOLOGY: benign, pending SUBJECTIVE/INTERVAL HISTORY: Britta Najera reports that she feels well. No fever or chills. No shortness of breath, cough, or chest pain. No incisional redness, swelling, or drainage. Patient reports that her appetite is good. OBJECTIVE: general- awake, alert, NAD ASSESSMENT: postop TVH, bilateral salpingectomy, USLF, Caro's culdoplasty PLAN: 1. Discussed results of pathology and implications with patient. 2. Postop restrictions reviewed. Marge Leija MD CBC-COMPLETE BLOOD CNT Collected: 04/13/2018 Status: F Source: [place] NO DIFF 6:04 AM [facility] REPOSITORY TYPE CODE TESTS RESULT OUT OF RANGE REFERENCE UNITS LAB L100.1000 4.4-11.0 K/mm3 High WBC 16.0 LAB L100.1200 4.2-5.4 M/mm3 Low RBC 3.48 LAB L100.1300 12.0-15.0 g/dl Low HGB 10.3 LAB L100.1400 37-47 % Low HCT 32.8 LAB L100.1500 81-99 fL Normal MCV 94.3 LAB L100.1600 27.0-32.0 pg Normal MCH 29.6 LAB L100.1700 32-36 g/gl Low MCHC 31.4 LAB L100.1810 11.6-14.6 % Normal RDW CV 12.3 LAB L100.1820 35.1-43.9 fl Normal RDW SD 41.2 LAB L100.1900 150-450 K/mm3 Normal PLT 233 LAB L100.2000 6.2-12.0 fl Normal MPV 10.5 Performed By: #### L100.0500 #### [facility] [address] [place], [address] PROGRESS Observed: 04/12/2018 Status: COMPLETED Source: [place] 6:51 PM [facility] [place] REPOSITORY HNO ID: [id number] Author: Marge Leija Service: (none) Author Type: Physician Type: Progress Notes Filed: 04/12/2018 6:54 PM Note Text: Patient underwent total vaginal hysterectomy with bilateral salpingectomy, episiotomy with repair in order to allow adequate vaginal access, uterosacral ligament fixation, Caro's culdoplasty and cystoscopy today at [facility]. Patient tolerated the procedure well. Pathology is pending. She will likely be discharged home tomorrow. Marge Leija MD DISCHARGE INSTRUCTION Observed: 04/12/2018 Status: F Source: [place] 3:09 PM [facility] Medical Records Department [address] [place] [address] Instructions for Home/Discharge Instructions 04/12/18 1508 MR#: [id number] Acct: [id number] Name: BRITTA NAJERA Rep #: [id number] : 1970 47 From: Marge Leija MD PCP: Care Physician, No Primary Status: REG [facility] Discharge Diet: No Restrictions Discharge Activity: Return to Normal Activity, May Not Drive - while taking narcotic pain medications., May Shower May resume sexual activity in: 6-8 weeks Call your doctor if your incision/area has: Continuous Slow Oozing, Sudden Increased Bleeding, Increased Pain/ Swelling, Increased Redness, Foul Smelling Discharge Call your doctor if you observe: Fever of 101 or Higher, Inability to urinate, Inability to have a bowel movement, Using more than one pad per hour Cleanse incision/area with: Soap AND Water, - - Your incision has skin glue. It can get wet. Leave the skin glue on for 10-14 days or until it falls off on its own. Allergies/Adverse Reactions: Allergies hydrocodone bitartrate [From Vicodin] Allergy (Verified 12/10/15 17:41) Unknown ibuprofen Allergy (Verified 12/10/15 17:41) Unknown oxycodone HCl [From Percocet] Allergy (Verified 12/10/15 17:41) Unknown Penicillins Allergy (Verified 12/10/15 17:41) Unknown Medications to take at Discharge Tumeric 2,000 mg PO DAILY 04/05/18 Naproxen Sodium/Pseudoephedrin [Aleve-D Sinus and Cold Caplet] 1 each PO BID PRN 04/12/18 Primary Care Physician: Care Physician,No Primary [Primary Care Provider] - Please Follow Up With: Marge Leija MD - [phone] When: 1-2 and 6 weeks or as needed 04/12/18 6507 <Electronically signed by Marge Leija MD> Date Marge Leija MD CC: No Primary Care Physician; Cliff Ramires MD OPERATIVE REPORT Observed: 04/12/2018 Status: F Source: [place] 12:47 PM [facility] RE[facility] Medical Records Department [address] [place] [address] Operative Report 04/12/18 1239 MR#: [id number] Acct: [id number] Name: BRITTA NAJERA Rep #: [id number] : 1970 47 From: Marge Leija MD PCP: Care Physician, No Primary Status: REG [facility] Y Location: [place] [address] Report of Operation Date of Procedure: 04/12/18 Pre-Operative Diagnosis: menorrhagia, second degree uterine prolapse, midline cystocele Post-Operative Diagnosis: same Surgery/Procedure Performed:: Total vaginal hysterectomy with bilateral salpingectomy, uterosacral ligament fixation, cystoscopy and episiotomy with repair Description of Surgical Findings:: Small uterus with uterine fibroid noted. Bilateral normal- appearing ovaries. Normal-appearing cervix. Normal-appearing tubes membership sales manager: Cliff Ramires membership sales manager: Shayan Gaona student Type of Anesthesia:: General Anesthesiologist: Daina Saunders Special Medications: None Specimen's removed: Uterus, cervix, bilateral tubes Drains: Barnett catheter 350 cc yellow urine during the procedure Estimated Blood Loss (mL): 50 Fluids Replaced: 1500cc lr Description of Procedure: The patient was taken to the operating room where she was prepped and draped in the normal sterile fashion in the dorsal lithotomy position. A weighted speculum was placed in the vagina and the anterior lip of the cervix was grasped with a Angel clamp. The vaginal epithelium was infiltrated circumferentially around the cervix with 1% Xylocaine solution. An incision was made around the entire cervix with a scalpel and the vaginal epithelium was dissected back with blunt and sharp dissection. The anterior colpotomy incision was made sharply. Entry into the anterior cul-de-sac was confirmed by visualization of the uterine fundus and bowel behind the uterus. The vaginal introitus was so tight that we did not have significant visualization when we had one retractor and anteriorly to enter posteriorly. There is a tight band at the perineum and the decision was made to do PD anatomy to allow adequate visualization manipulation. The next prolapsed to approximately 1.5 cm beyond the hymenal ring so descent was adequate but vaginal conference was not. After the small episiotomy was made in the midline we are able to place an anterior posterior retractor and proceed The posterior colpotomy was made with the Johnson scissors. The posterior peritoneum was secured to the posterior vaginal cuff with an [id number] 0 Vicryl suture. The Roger retractor was placed in the posterior colpotomy incision. The uterosacral ligaments were clamped with Eda clamps transected and suture ligated on both sides and excellent hemostasis of the pedicles was noted. The cardinal ligaments were clamped transected and suture ligated. The remainder of the cardinal ligament with the uterine arteries was clamped transected and suture ligated. The utero- ovarian ligaments and tubes were clamped transected and suture ligated. The uterus was brought out through the colpotomy incision intact. The left ovary and tube appeared normal. A Sahra clamp was placed across the left tube and it was transected with the Metzenbaum scissors and suture ligated. The same procedure was performed on the contralateral side. The pedicles were all examined again and found to be hemostatic. At this point a Caro's culdoplasty was done with an 0 Vicryl suture. Entering the posterior vaginal cuff the peritoneum was secured reefed across the peritoneum to the right uterosacral ligament, back across the peritoneum to the left uterosacral ligament and back out through the posterior vaginal wall. The bowel was packed away with moist laparotomy sponges and the Breisky retractors were used to allow adequate visualization. On the lateral side a 2-0 PDS suture was placed through the anterior vaginal incision through the uterosacral ligament and back out through the posterior vaginal cuff. A 2-0 Prolene suture was then placed under the vaginal epithelium anteriorly, through slightly higher area of the uterosacral ligament and out through the posterior vaginal wall taking care not completely go through the vaginal epithelium. The same procedure was performed on the lateral side. A third suture was not placed on each side due to difficulty with visualization because of the small vaginal circumference. At this point cystoscopy was done and the bladder was intact and appeared normal. Both ureteral jets were identified. Then he was placed on the uterosacral ligament fixation sutures on both sides and both ureteral jets were again identified. The cystoscopy was completed and the Barnett catheter was replaced. Uterosacral ligament fixation sutures were tied down. The remainder of the vaginal cuff was then reapproximated horizontally with interrupted 0 Vicryl [id number] sutures. The Caro's sutures were tied down. The vaginal cuff was hemostatic and excellent support was noted. I closed the episiotomy with 3-0 Vicryl repeat suture in a running standard fashion. Care was taken to reapproximate the perineal body and then the vaginal and perineal epithelium were closed in a subcuticular fashion. The Barnett was left to straight drain. The vaginal sweep was completed by me. All sponge lap and needle counts were correct. Patient was awakened and taken to theher recovery room in stable condition. Grafts/Implants Used: None - Complications None 04/12/18 [id number] <Electronically signed by Marge Leija MD> Date Marge Leija MD CC: No Primary Care Physician; Cliff Ramires MD; Marge Leija MD Signed ,URINE Collected: 04/12/2018 Status: F Source: [place] 8:12 AM [facility] TYPE CODE TESTS RESULT OUT OF REFERENCE UNITS RANGE LAB L400.8000 Negative Normal HCGUQUAL Negative Result Comment: Very dilute urine specimens, as indicated by a low specific gravity, may not contain customer counter representative levels of hCG. If is still suspected, a first morning urine specimen should be collected 48 hours later and tested. Performed By: #### L400.7600 #### [facility] [address] [place], [address] CNOP Observed: 04/12/2018 Status: COMPLETED Source: [place] 12:00 AM [facility] REPOSITORY Operative Note (Enc) (WOOB) Progress Notes: Marge Leija MD 04/12/2018 6:54 PM Signed Patient underwent total vaginal hysterectomy with bilateral salpingectomy, episiotomy with repair in order to allow adequate vaginal access, uterosacral ligament fixation, Caro's culdoplasty and cystoscopy today at [facility]. Patient tolerated the procedure well. Pathology is pending. She will likely be discharged home tomorrow. aMrge Leija MD Encounter Status:Closed by MARGE LEIJA MD on 04/12/18 HYSTERECTOMY SPECIMEN Observed: 04/12/2018 Status: F Source: [place] 12:00 AM [facility] REPOSITORY Patient: BRITTA NAJERA : 1970 (47/F) Acct Num: [id number] Phys: Marge Leija MD Unit Num: [id number] Loc: MS2 [id number] Specimen: [id number] Received: 04/12/181432 Spec Type: HYSTERECT TISSUES TISSUES: Uterus, NOS GROSS DESCRIPTION Received in fixative is one container labeled with the patient's name and designated uterus and bilateral fallopian tubes. The specimen consists of a hysterectomy specimen consisting of uterus with cervix and detached bilateral fallopian tubes. The uterus with cervix weighs 80 gm and measures 8 x 6 x 4.5 cm. The serosal surface is dale, glistening. The ectocervical mucosa is unremarkable. The external os is circular in contour. A two-prong suture is protruding below the external os. The endocervical canal measures 2.5 cm in length and the endocervical mucosa is unremarkable. The endometrial cavity is compressed to one side and measures 4 cm in length and up to 1.5 cm in width. The endometrial cavity contains a white T-shaped intrauterine device. The vertical arm is present in the endometrial cavity and the T-shaped arm of the IUD is embedded in the superficial portion of the myometrium. The vertical arm measures 3 cm in length and horizontal arm measures 3.5 cm in length and the two -prong suture measures 4 and 4.5 cm in length. The intrauterine device is intact. The endometrial cavity is compressed to one side due to presence of a submucosal to intramural serosal mass. Sections of the uterine wall reveal intramural to submucosal nodular masses. The largest mass measures 3.5 cm in greatest dimension. The uninvolved uterine wall measures up to 2 cm in thickness. Sections of these masses reveal dale whorled cut surfaces without areas of hemorrhage, necrosis or cystic degeneration. One of the fallopian tubes measure 4 cm in length and 0.5 cm in diameter. The fimbrial end is identified. The second fallopian tube measures 3 cm in length and 0.5 cm in diameter. Also present in the container the proximal portion of the second fallopian tube measuring 3.5 cm in length and 0.3 cm in diameter. Sections of both fallopian tubes reveal unremarkable cut surfaces. Partition Making Machine Operator sections are submitted in ten cassettes as follows: 1 - anterior cervix, 2 - posterior cervix, 3 AND 4 - anterior uterine wall, section of smaller and intermediate sized nodular masses, 5 AND 6 - posterior uterine wall, 7 AND 8 largest nodular mass, 9 one fallopian tube, 10 second fallopian tube received in two pieces. / WINTER: eric 04/12/18 TC:1 CPT: 03712 HEADER OPERATION: Vaginal hysterectomy, bilateral salpingectomy, uterosacral PRE-OP DIAGNOSIS: Menorrhagia, second-degree uterovaginal prolapse, midline cystocele TISSUE SUBMITTED: Uterus, bilateral fallopian tubes MICROSCOPIC DESCRIPTION Slides are reviewed. MICROSCOPIC DIAGNOSIS Uterus and fallopian tubes, vaginal hysterectomy and bilateral salpingectomy: Cervix chronic cystic cervicitis. Endometrium inactive endometrium. Focal fibrosis of endometrium. Myometrium intramural and submucosal leiomyomas (largest measuring 3.5 cm in greatest dimension). Focal superficial adenomyosis. Bilateral fallopian tubes - no pathologic diagnosis. T-shaped intrauterine device (gross only). WINTER:eric 04/13/18 Signed Sharan Hancock 04/13/18 <signature on file> Performed By: #### PHYST #### [facility] [address] [place], [address] CBC-COMPLETE BLOOD CNT Collected: 04/09/2018 Status: F Source: [place] NO DIFF 10:24 AM [facility] REPOSITORY TYPE CODE TESTS RESULT OUT OF RANGE REFERENCE UNITS LAB L100.1000 4.4-11.0 K/mm3 Normal WBC 8.7 LAB L100.1200 4.2-5.4 M/mm3 Normal RBC 4.53 LAB L100.1300 12.0-15.0 g/dl Normal HGB 12.9 LAB L100.1400 37-47 % Normal HCT 42.1 LAB L100.1500 81-99 fL Normal MCV 92.9 LAB L100.1600 27.0-32.0 pg Normal MCH 28.5 LAB L100.1700 32-36 g/gl Low MCHC 30.6 LAB L100.1810 11.6-14.6 % Normal RDW CV 12.6 LAB L100.1820 35.1-43.9 fl Normal RDW SD 42.4 LAB L100.1900 150-450 K/mm3 Normal PLT 324 LAB L100.2000 6.2-12.0 fl Normal MPV 10.4 Performed By: #### L100.0500 #### [facility] [address] [place], [address] TYPE AND SCREEN Collected: 04/09/2018 Status: F Source: [place] 10:24 AM [facility] REPOSITORY Order Comment: Surgery Date: 04/12/18 Hx of Preganancy in last 3 Months No Ever experience any problems with transfusion(s)? N Hx of Transfusion in last 3 Months N Reason for Type AND Screen/Red Cells: SURGERY SURGICAL PROCEDURE: HYSTO TYPE CODE TESTS RESULT OUT OF RANGE REFERENCE UNITS LAB B10.0800 B Normal BLOOD TYPE GEL POSITIVE LAB B100.4000 Normal Antibody NEGATIVE Screen Performed By: #### B101.7475 #### [facility] [address] [place], [address] PROGRESS Observed: 04/02/2018 Status: COMPLETED Source: [place] 10:20 AM [facility] REPOSITORY HNO ID: [id number] Author: Marge Leija Service: (none) Author Type: Physician Type: Progress Notes Filed: 04/02/2018 11:13 AM Note Text: Pre-Op History and Physical HPI: The patient is a 47 year old female presenting for pre-operative visit. She is scheduled for TVH, bilateral salpingectomy, USLF, possible anterior repair and cystoscopy, for menorrhagia, second degree uterovaginal prolapse and midline cystocele on 04/12/18. Procedure discussed along with risks, benefits and complications. Other alternatives discussed for management. Consent form signed? Yes. PAST MEDICAL HISTORY Diagnosis Date - Chronic depressive personality disorder PAST SURGICAL HISTORY Procedure Laterality Date - INSERT INTRAUTERINE DEVICE 08/2001, 12/24/2013 mirena Current Outpatient Prescriptions: naproxen sodium/pseudoephedrin (ALEVE-D SINUS AND COLD ORAL) Take by mouth. Disp: Rfl: levonorgestrel (MIRENA) 20 mcg/24 hr (5 years) IUD 1 Each by INTRAUTERINE route one time only. Disp: Rfl: cyclobenzaprine (FLEXERIL) 10 mg tablet Take 1 tablet by mouth three times daily as needed for Muscle Spasm. (Patient not taking: Reported on 12/12/2017 ) Disp: 20 tablet Rfl: 0 multivitamin tablet Take 1 tablet by mouth once daily. Disp: Rfl: buPROPion XL (WELLBUTRIN XL) 150 mg 24 hr tablet Take 1 tablet by mouth once daily. (Patient not taking: Reported on 04/02/2018 ) Disp: 30 tablet Rfl: 1 No current facility-administered medications for this visit. ALLERGIES: Flagyl [Metronidazole Hcl]; Ibuprofen; Lexapro [Escitalopram Oxalate]; Penicillins; Zoloft [Sertraline Hcl] PERSONAL HISTORY: Social History Marital status: Spouse name: Years of education: Number of children: 1 Occupational History Occupation Employer Comment [employer] Social History Main Topics Smoking status: Former Smoker Packs/day: 0.00 Years: 0.00 Smokeless tobacco: Never Used Comment: on occ. Alcohol use: Yes Comment: 1-2 beer week or less Drug use: No Sexual activity: Yes control/protection: IUD Comment: VALENCIA FAMILY HISTORY: FAMILY HISTORY Problem Relation Age of Onset - Hypertension Mother - Stroke Mother - Diabetes Mother - lump [OTHER] Mother removal benign breast - Breast Cancer Paternal Aunt REVIEW OF SYMPTOMS: GENERAL: denies fevers or chills ENDOCRINOLOGY: has not been on steroids Cardiology : denies palpitations or chest pain Respiratory: denies SOB or cough Hematology: denies history of prolonged bleeding or easy bruising or VTE Allergy: Denies history of personal or family history of allergy to anesthesia PHYSICAL EXAMINATION: VITALS: There were no vitals taken for this visit. GENERAL: The patient is well nourished, well hydrated in no acute distress. , The patient is oriented to time, place, and person. NECK: Supple. No lynphadenopathy, normal thyroid, no thyromegaly. LUNGS: Clear to auscultation bilaterally. no wheezes, rhonchi or rales HEART: Regular rate and rhythm, Normal heart sounds and No murmurs or gallops GENITALIA: Normal external genitalia, Urethral meatus normal, Bladder nontender, normal vagina and normal vaginal tone, normal cervix, normal uterus, size and consistency, normal adnexa without masses or tenderness and perineum WNL WET PREP: Not indicated Pap 2014- neg w/ neg Neg HRHPV Pelvic US done 07/2017: Report Summary: Overall impression: A bulky anteverted uterus with the measurements shown below. The endometrial echo measures 5.9 mm. The endometrial cavity appears normal. The myometrium appears normal. The right ovary is not visualized. The left ovary shows 2 simple sonolucent cysts, most likely physiologic cysts. There is no fluid in the cul de sac IMPRESSION: Multiple uterine fibroids. Recommendations / therapy: Clinical correlation. _ Indication: Pelvic pain. _ History: Gynecological History: Contraception: IUCD. _ Gynecological Ultrasonography: Uterus: normal, anteverted. Size: Longitudinal 88 mm. Anterio- posterior 58 mm. Transverse 54 mm. Volume: 144.3 ml. Fibroids: Fibroid 1: Size: 13 mm x 11 mm x 16 mm. Type: anterior. Position: fundus. Fibroid 2: Size: 15 mm x 12 mm x 16 mm. Type: anterior. Position: left mid uterus. ? Fibroid 3: Size: 49 mm x 35 mm x 43 mm. Type: posterior. Position: left mid uterus. Endometrium: endometrium clearly visualized. Endometrium thickness total: 5.9 mm. Right Ovary: not visible. Left Ovary: normal. Visible. Outline: smooth. Morphology: normal physiological changes. Left Ovary size: 31 mm x 27 mm x 25 mm. Volume: 11.0 ml. Cysts Left Ovary: Cyst 1: Mean value: 18 mm. D1: 23 mm. D2: 12 mm. D3: 19 mm. Volume: 3 ml. Simple cyst. Cyst 2: Mean value: 17 mm. D1: 20 mm. D2: 11 mm. D3: 21 mm. Volume: 2 ml. Simple cyst. Cul de Sac / Pouch of Constantine: no free fluid visible. IMPRESSION: for h/o menorrhagia ( no bleeding w/ mirena), second degree uterovaginal prolapse and midline cystocele PLAN: The risks/benefits/alternatives and personal involved for the planned TVH, bilateral salpingectomy, USLF, possible anterior repair and cystoscopy were reviewed with the patient. Her questions were answered to her satisfaction and she desires to proceed. Consent was signed. I reviewed with her postop instructions and expectations. I have reviewed and updated past medical and surgical history, medications and allergies Marge Leija M.D. NAMITA Observed: 04/02/2018 Status: COMPLETED Source: [place] 10:10 AM [facility] REPOSITORY Office Visit (WOOB) BRITTA NAJERA ([id number]) 1970 F Date Time Provider Department 04/02/18 10:10 AM MARGE LEIJA During your visit today, we recorded the following information about you: Pulse Respiration Blood pressure Weight 68/minute 16/minute 96/58 53.5 kg Height 1.6 m Marge Leija MD 04/02/2018 11:13 AM Signed Pre-Op History and Physical HPI: The patient is a 47 year old female presenting for pre- operative visit. She is scheduled for TVH, bilateral salpingectomy, USLF, possible anterior repair and cystoscopy, for menorrhagia, second degree uterovaginal prolapse and midline cystocele on 04/12/18. Procedure discussed along with risks, benefits and complications. Other alternatives discussed for management. Consent form signed? Yes. PAST MEDICAL HISTORY Diagnosis Date - Chronic depressive personality disorder PAST SURGICAL HISTORY Procedure Laterality Date - INSERT INTRAUTERINE DEVICE 08/2001, 12/24/2013 mirena Current Outpatient Prescriptions: naproxen sodium/pseudoephedrin (ALEVE-D SINUS AND COLD ORAL) Take by mouth. Disp: Rfl: levonorgestrel (MIRENA) 20 mcg/24 hr (5 years) IUD 1 Each by INTRAUTERINE route one time only. Disp: Rfl: cyclobenzaprine (FLEXERIL) 10 mg tablet Take 1 tablet by mouth three times daily as needed for Muscle Spasm. (Patient not taking: Reported on 12/12/2017 ) Disp: 20 tablet Rfl: 0 multivitamin tablet Take 1 tablet by mouth once daily. Disp: Rfl: buPROPion XL (WELLBUTRIN XL) 150 mg 24 hr tablet Take 1 tablet by mouth once daily. (Patient not taking: Reported on 04/02/2018 ) Disp: 30 tablet Rfl: 1 No current facility-administered medications for this visit. ALLERGIES: Flagyl [Metronidazole Hcl]; Ibuprofen; Lexapro [Escitalopram Oxalate]; Penicillins; Zoloft [Sertraline Hcl] PERSONAL HISTORY: Social History Marital status: Spouse name: Years of education: Number of children: 1 Occupational History Occupation Employer Comment [employer] Social History Main Topics Smoking status: Former Smoker Packs/day: 0.00 Years: 0.00 Smokeless tobacco: Never Used Comment: on occ. Alcohol use: Yes Comment: 1-2 beer week or less Drug use: No Sexual activity: Yes control/protection: IUD Comment: MIRENA FAMILY HISTORY: FAMILY HISTORY Problem Relation Age of Onset - Hypertension Mother - Stroke Mother - Diabetes Mother - lump [OTHER] Mother removal benign breast - Breast Cancer Paternal Aunt REVIEW OF SYMPTOMS: GENERAL: denies fevers or chills ENDOCRINOLOGY: has not been on steroids Cardiology : denies palpitations or chest pain Respiratory: denies SOB or cough Hematology: denies history of prolonged bleeding or easy bruising or VTE Allergy: Denies history of personal or family history of allergy to anesthesia PHYSICAL EXAMINATION: VITALS: There were no vitals taken for this visit. GENERAL: The patient is well nourished, well hydrated in no acute distress. , The patient is oriented to time, place, and person. NECK: Supple. No lynphadenopathy, normal thyroid, no thyromegaly. LUNGS: Clear to auscultation bilaterally. no wheezes, rhonchi or rales HEART: Regular rate and rhythm, Normal heart sounds and No murmurs or gallops GENITALIA: Normal external genitalia, Urethral meatus normal, Bladder nontender, normal vagina and normal vaginal tone, normal cervix, normal uterus, size and consistency, normal adnexa without masses or tenderness and perineum WNL WET PREP: Not indicated Pap 2013- neg w/ neg Neg HRHPV Pelvic US done 07/2017: Report Summary: Overall impression: A bulky anteverted uterus with the measurements shown below. The endometrial echo measures 5.9 mm. The endometrial cavity appears normal. The myometrium appears normal. The right ovary is not visualized. The left ovary shows 2 simple sonolucent cysts, most likely physiologic cysts. There is no fluid in the cul de sac IMPRESSION: Multiple uterine fibroids. Recommendations / therapy: Clinical correlation. Indication: Pelvic pain. History: Gynecological History: Contraception: IUCD. Gynecological Ultrasonography: Uterus: normal, anteverted. Size: Longitudinal 88 mm. Anterio- posterior 58 mm. Transverse 54 mm. Volume: 144.3 ml. Fibroids: Fibroid 1: Size: 13 mm x 11 mm x 16 mm. Type: anterior. Position: fundus. Fibroid 2: Size: 15 mm x 12 mm x 16 mm. Type: anterior. Position: left mid uterus. ? Fibroid 3: Size: 49 mm x 35 mm x 43 mm. Type: posterior. Position: left mid uterus. Endometrium: endometrium clearly visualized. Endometrium thickness total: 5.9 mm. Right Ovary: not visible. Left Ovary: normal. Visible. Outline: smooth. Morphology: normal physiological changes. Left Ovary size: 31 mm x 27 mm x 25 mm. Volume: 11.0 ml. Cysts Left Ovary: Cyst 1: Mean value: 18 mm. D1: 23 mm. D2: 12 mm. D3: 19 mm. Volume: 3 ml. Simple cyst. Cyst 2: Mean value: 17 mm. D1: 20 mm. D2: 11 mm. D3: 21 mm. Volume: 2 ml. Simple cyst. Cul de Sac / Pouch of Constantine: no free fluid visible. IMPRESSION: for h/o menorrhagia ( no bleeding w/ mirena), second degree uterovaginal prolapse and midline cystocele PLAN: The risks/benefits/alternatives and personal involved for the planned TVH, bilateral salpingectomy, USLF, possible anterior repair and cystoscopy were reviewed with the patient. Her questions were answered to her satisfaction and she desires to proceed. Consent was signed. I reviewed with her postop instructions and expectations. I have reviewed and updated past medical and surgical history, medications and allergies Marge Leija M.D. Referring Provider: SELF [[id number]] Allergies As of Date: 04/02/2018 Noted Allergy Reaction FLAGYL (METRONIDAZOLE HCL) 06/18/2005 PENICILLINS 06/18/2005 16 - Unknown Comments: bloating, IBUPROFEN 11/15/2013 2 - Rash Comments: but can take naproxyn, gets cysts LEXAPRO (ESCITALOPRAM OXALATE) 06/18/2005 5 - Intolerance Comments: wt gain ZOLOFT (SERTRALINE HCL) 06/18/2005 5 - Intolerance Comments: wt gain Date Reviewed: 04/02/2018 Reviewed by: Marge Leija - Fully Assessed Reason for Visit: Pre-Op Visit [1235] Primary Visit Diagnosis:Cystocele, midline [N81.11] Other Visit Diagnoses:Complete uterine prolapse [N81.3] Premenopausal menorrhagia [N92.4] Postoperative pain [G89.18] Preoperative examination [Z01.818] Order(s):busPIRone (BUSPAR) 5 mg tabletTake 1 tablet by mouth three times daily.Disp: 90 tabletRfl: 1 naproxen (NAPROSYN) 500 mg tabletTake 1 tablet by mouth three times daily as needed for Pain.Disp: 40 tabletRfl: 1 traMADol (ULTRAM) 50 mg tabletTake 1 tablet by mouth every 6 hours as needed for Pain for up to 5 days.Disp: 20 tabletRfl: 0 Prescriptions as of 04/02/2018 Sig: ALEVE-D SINUS AND COLD ORAL Take by mouth. LEVONORGESTREL 20 MCG/24 HR (* 1 Each by INTRAUTERINE route * BUSPIRONE 5 MG TABLET Take 1 tablet by mouth three * NAPROXEN 500 MG TABLET Take 1 tablet by mouth three * TRAMADOL 50 MG TABLET Take 1 tablet by mouth every * Problem List As Of Date 04/02/2018 Noted Resolved Premenopausal menorrhagia [N92.4] INVALID FOR* IUD (intrauterine device) in place [Z97.5] INVALID FOR*12/20/2013 Complete uterine prolapse [N81.3] INVALID FOR* Cystocele, midline [N81.11] INVALID FOR* Prescriptions ordered this encounter Disp Refills Start End BUSPIRONE 5 MG TABLET 90 t* 1 04/02/2018 Route: ORAL Sig: Take 1 tablet by mouth three times daily. NAPROXEN 500 MG TABLET 40 t* 1 04/02/2018 05/02/2018 Route: ORAL Sig: Take 1 tablet by mouth three times daily as needed for Pain. TRAMADOL 50 MG TABLET 20 t* 0 04/02/2018 04/07/2018 Class: Print RX Route: ORAL Sig: Take 1 tablet by mouth every 6 hours as needed for Pain for up to 5 days. Medications Discontinued During This Encounter multivitamin tablet 04/02/2018 Class: Historical Med Route: ORAL Sig: Take 1 tablet by mouth once daily. Disc: Reason for discontinue is not on file. buPROPion XL (WELLBUTRIN XL) 150 mg * 30 t* 1 01/06/2016 04/02/2018 Route: ORAL Sig: Take 1 tablet by mouth once daily. Patient not taking: Reported on 04/02/2018 Disc: Reason for discontinue is not on file. cyclobenzaprine (FLEXERIL) 10 mg tab* 20 t* 0 07/31/2017 04/02/2018 Route: ORAL Sig: Take 1 tablet by mouth three times daily as needed for Muscle Spasm. Patient not taking: Reported on 12/12/2017 Disc: Reason for discontinue is not on file. Encounter Status:Closed by MARGE LEIJA MD on 04/02/18 CNCO Observed: 12/25/2017 Status: COMPLETED Source: [place] 12:00 AM [facility] REPOSITORY Letter Text Marge Leija M.D. [facility] [address] [place], [place] [address] 12/25/2017 Britta Najera [address] [facility] [id number] [facility]#: [id number] Dear Britta, This letter is to confirm with you the dates and times of your upcoming surgery. You should have received a telephone call notifying you of this information. Surgery is scheduled on 04/12/18 at [facility]. Pre-operative appointment at Dr. Leija's office is scheduled on 04/02/18 at 10:10 a.m. [facility] will contact you by phone for pre-admission testing on 04/05/18 @ 1:00 p.m. 2 week follow-up appointment at Dr. Leija's office is scheduled on 04/23/18 @ 10:10 a.m. In addition, we will do a precertification approximately 1 week prior to your surgery. This means we will give your insurance company the medical information they need to make a predetermination. This is not a guarantee of payment and you will need to call your insurance company to verify benefits and coverage. If you are self-pay and/or receive [facility] Financial Assistance, and are having surgery at [facility], please call them at [phone] to make financial arrangements. We will only call you if there is a problem. If you have any questions, please feel free to call us at the phone number above. We appreciate your confidence in choosing the [facility] for your medical care and we look forward to seeing you at your next appointment. Thank you, [facility] PROGRESS Observed: 12/12/2017 Status: COMPLETED Source: [place] 1:38 PM [facility] REPOSITORY HNO ID: [id number] Author: Marge Leija Service: (none) Author Type: Physician Type: Progress Notes Filed: 12/25/2017 3:45 PM Note Text: HPI: Britta Najera is a 47 year old female who presents for problem visit for pelvic pressure and pain. Feeling like something wants to push out. . Worse after being on her feet and walking. 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 She denies any splinting for bowel movements or urination. She denies any significant stress incontinence. She denies any fecal incontinence. Pelvic pressure and prolapse. PAST MEDICAL HISTORY Diagnosis Date - Chronic depressive personality disorder PAST SURGICAL HISTORY Procedure Laterality Date - INSERT INTRAUTERINE DEVICE 08/2001, 12/24/2013 mirena FAMILY HISTORY Problem Relation Age of Onset - Hypertension Mother - Stroke Mother - Diabetes Mother - lump [OTHER] Mother removal benign breast - Breast Cancer Paternal Aunt Social History Marital status: Spouse name: Years of education: Number of children: 1 Occupational History Occupation Employer Comment [employer] Social History Main Topics Smoking status: Former Smoker Packs/day: 0.00 Years: 0.00 Smokeless status: Never Used Comment: on occ. Alcohol use: Yes Comment: 1-2 beer week or less Drug use: No Sexual activity: Yes control/protection: IUD Comment: MIRENA Current Outpatient Prescriptions: levonorgestrel (MIRENA) 20 mcg/24 hr (5 years) IUD 1 Each by INTRAUTERINE route one time only. cyclobenzaprine (FLEXERIL) 10 mg tablet Take 1 tablet by mouth three times daily as needed for Muscle Spasm. (Patient not taking: Reported on 12/12/2017 ) multivitamin tablet Take 1 tablet by mouth once daily. buPROPion XL (WELLBUTRIN XL) 150 mg 24 hr tablet Take 1 tablet by mouth once daily. No current facility-administered medications for this visit. Allergies As of Date: 12/12/2017 Allergen Noted Reaction FLAGYL [METRONIDAZOLE HCL] 06/18/2005 IBUPROFEN 11/15/2013 Rash LEXAPRO [ESCITALOPRAM OXALATE] 06/18/2005 PENICILLINS 06/18/2005 ZOLOFT [SERTRALINE HCL] 06/18/2005 Fully Assessed 12/12/2017 REVIEW OF SYSTEMS Abdomen: No bloating, early satiety, indigestion, or increased flatulence. No abdominal pain, nausea, vomiting, diarrhea, or constipation. Bladder: No dysuria, gross hematuria, urinary frequency, urinary urgency, or incontinence. Breast: No breast lumps, nipple d/c, overlying skin changes, redness or skin retraction. Allergies and current medication updated:Yes EXAM: There were no vitals taken for this visit. GENERAL: pleasant, female in no apparent distress HEENT: Normocephalic, atraumatic, mucus membranes moist and no lesions NECK: Supple, full range of motion, no adenopathy and thyroid normal ABDOMEN: soft, non-tender and no masses PELVIC: external genitalia normal, normal Bartholin's glands, urethra, Justice's glands, no vulvar lesions, good vaginal support, physiologic discharge present, normal appearing perineal body and perianal region, cystocele 2nd degree midlin, rectocele 1st degree, cervical prolapse 2nd degree BIMANUAL: no adnexal masses, non-tender and boggy, tender, mobile NEURO: alert and oriented x3,exam grossly non-focal EXTREMITIES: normal ASSESSMENT AND PLAN: Symptomatic midline cystocele, second-degree uterine prolapse. Declines pessary. Risks benefits and alternatives to various options were discussed with the patient, her questions were answered to her satisfaction she desires to proceed with definitive surgical therapy in the form of a total vaginal hysterectomy with bilateral salpingectomy, uterosacral ligament fixation, anterior repair and cystoscopy. Discussed with the patient risks of surgery as well as risk of recurrent prolapse. Discussed with her postop restrictions and expectations. Marge Leija MD CNOV Observed: 12/12/2017 Status: COMPLETED Source: [place] 1:30 PM [facility] REPOSITORY Office Visit (WOOB) BRITTA NAJERA ([id number]) 1970 F Date Time Provider Department 12/12/17 1:30 PM MARGE LEIJA WOOB During your visit today, we recorded the following information about you: Blood pressure Weight 94/52 54.9 kg Marge Leija MD 12/25/2017 3:45 PM Signed HPI: Britta Najera is a 47 year old female who presents for problem visit for pelvic pressure and pain. Feeling like something wants to push out. . Worse after being on her feet and walking. 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 She denies any splinting for bowel movements or urination. She denies any significant stress incontinence. She denies any fecal incontinence. Pelvic pressure and prolapse. PAST MEDICAL HISTORY Diagnosis Date - Chronic depressive personality disorder PAST SURGICAL HISTORY Procedure Laterality Date - INSERT INTRAUTERINE DEVICE 08/2001, 12/24/2013 mirena FAMILY HISTORY Problem Relation Age of Onset - Hypertension Mother - Stroke Mother - Diabetes Mother - lump [OTHER] Mother removal benign breast - Breast Cancer Paternal Aunt Social History Marital status: Spouse name: Years of education: Number of children: 1 Occupational History Occupation Employer Comment [employer] Social History Main Topics Smoking status: Former Smoker Packs/day: 0.00 Years: 0.00 Smokeless status: Never Used Comment: on occ. Alcohol use: Yes Comment: 1-2 beer week or less Drug use: No Sexual activity: Yes control/protection: IUD Comment: MIRENA Current Outpatient Prescriptions: levonorgestrel (MIRENA) 20 mcg/24 hr (5 years) IUD 1 Each by INTRAUTERINE route one time only. cyclobenzaprine (FLEXERIL) 10 mg tablet Take 1 tablet by mouth three times daily as needed for Muscle Spasm. (Patient not taking: Reported on 12/12/2017 ) multivitamin tablet Take 1 tablet by mouth once daily. buPROPion XL (WELLBUTRIN XL) 150 mg 24 hr tablet Take 1 tablet by mouth once daily. No current facility-administered medications for this visit. Allergies As of Date: 12/12/2017 Allergen Noted Reaction FLAGYL [METRONIDAZOLE HCL] 06/18/2005 IBUPROFEN 11/15/2013 Rash LEXAPRO [ESCITALOPRAM OXALATE] 06/18/2005 PENICILLINS 06/18/2005 ZOLOFT [SERTRALINE HCL] 06/18/2005 Fully Assessed 12/12/2017 REVIEW OF SYSTEMS Abdomen: No bloating, early satiety, indigestion, or increased flatulence. No abdominal pain, nausea, vomiting, diarrhea, or constipation. Bladder: No dysuria, gross hematuria, urinary frequency, urinary urgency, or incontinence. Breast: No breast lumps, nipple d/c, overlying skin changes, redness or skin retraction. Allergies and current medication updated:Yes EXAM: There were no vitals taken for this visit. GENERAL: pleasant, female in no apparent distress HEENT: Normocephalic, atraumatic, mucus membranes moist and no lesions NECK: Supple, full range of motion, no adenopathy and thyroid normal ABDOMEN: soft, non-tender and no masses PELVIC: external genitalia normal, normal Bartholin's glands, urethra, Justice's glands, no vulvar lesions, good vaginal support, physiologic discharge present, normal appearing perineal body and perianal region, cystocele 2nd degree midlin, rectocele 1st degree, cervical prolapse 2nd degree BIMANUAL: no adnexal masses, non-tender and boggy, tender, mobile NEURO: alert and oriented x3,exam grossly non-focal EXTREMITIES: normal ASSESSMENT AND PLAN: Symptomatic midline cystocele, second-degree uterine prolapse. Declines pessary. Risks benefits and alternatives to various options were discussed with the patient, her questions were answered to her satisfaction she desires to proceed with definitive surgical therapy in the form of a total vaginal hysterectomy with bilateral salpingectomy, uterosacral ligament fixation, anterior repair and cystoscopy. Discussed with the patient risks of surgery as well as risk of recurrent prolapse. Discussed with her postop restrictions and expectations. Marge Leija MD Referring Provider: SELF [200] Allergies As of Date: 12/12/2017 Noted Allergy Reaction FLAGYL (METRONIDAZOLE HCL) 06/18/2005 IBUPROFEN 11/15/2013 2 - Rash LEXAPRO (ESCITALOPRAM OXALATE) 06/18/2005 PENICILLINS 06/18/2005 ZOLOFT (SERTRALINE HCL) 06/18/2005 Date Reviewed: 12/12/2017 Reviewed by: Betty Thompson Ma - Fully Assessed Reason for Visit: Discussion [813] Cmt: cyst on ovaries- seen on u/s Primary Visit Diagnosis:Cystocele, midline [N81.11] Other Visit Diagnosis:Complete uterine prolapse [N81.3] Prescriptions as of 12/12/2017 Sig: LEVONORGESTREL 20 MCG/24 HR (* 1 Each by INTRAUTERINE route * CYCLOBENZAPRINE 10 MG TABLET Take 1 tablet by mouth three * Patient not taking: Reported on 12/12/2017 MULTIVITAMIN TABLET Take 1 tablet by mouth once d* BUPROPION XL 150 MG TAB Take 1 tablet by mouth once d* Problem List As Of Date 12/12/2017 Noted Resolved Premenopausal menorrhagia [N92.4] INVALID FOR* IUD (intrauterine device) in place [Z97.5] INVALID FOR*12/20/2013 Encounter Status:Closed by MARGE LEIJA MD on 12/25/17 ALLERGIES ALLERGIES DATE TYPE / NAME / CODE REACTION SEVERITY SOURCE CODE 09/22/2018 Drug hydrocodone Unknown Unknown [place] Allergy/41 bitartrate/[id number] Community [id number]( 55(RXNORM) [facility]) Repository 09/22/2018 Drug oxycodone Unknown Unknown [place] Allergy/41 HCl/[id number](RXNO Community [id number]([facility]) [facility]) Repository 09/22/2018 Drug Penicillins/[id number] Unknown Unknown [place] Allergy/41 476(RXNORM) Community [id number]([facility]) Repository 09/22/2018 Drug ibuprofen/[id number] Unknown Unknown [place] Allergy/41 7(RXNORM) Community [id number]([facility]) Repository 11/15/2013 DRUG IBUPROFEN RASH [place] INGREDI/41 Clinic Main [id number]([facility]) Repository 11/15/2013 DRUG IBUPROFEN RASH [place] INGREDI/41 Clinic Main [id number]([facility]) Repository 06/18/2005 Drug PENICILLINS UNKNOWN [place] Class/4195 Clinic Main [id number]([facility]) Repository 06/18/2005 DRUG ESCITALOPRAM INTOLERANCE [place] INGREDI/41 OXALATE Clinic Main [id number]([facility]) Repository 06/18/2005 DRUG SERTRALINE HCL INTOLERANCE [place] INGREDI/41 Clinic Main [id number]([facility]) Repository 06/18/2005 DRUG METRONIDAZOLE HCL [place] INGREDI/41 Clinic Main [id number]([facility]) Repository 06/18/2005 DRUG ESCITALOPRAM [place] INGREDI/41 OXALATE Clinic Main [id number]([facility]) Repository 06/18/2005 Drug PENICILLINS [place] Class/4195 Clinic Main [id number]([facility]) Repository 06/18/2005 DRUG SERTRALINE HCL [place] INGREDI/41 Clinic Main [id number]([facility]) Repository ENCOUNTERS ENCOUNTERS ADMIT/DISCHARGE ACCOUNT ADMITTING ENCOUNTER LOCATION SOURCE NUMBER CLASS 09/22/2018/12/01 [id number] Emergency [place] [facility] ing:ED Repository 07/10/2018/07/11/20 [id number] Ambulatory [address] Repository 05/22/2018/05/23/20 [id number] Ambulatory [address] [place] Repository 04/30/2018/05/01/20 [id number] Ambulatory [address] [place] Repository 04/23/2018/04/26/20 [id number] Ambulatory [address] Repository 04/12/2018/04/14/20 [id number] [place] Ambulatory [place] [facility] ing:[id number]: Repository [id number]: 1 04/02/2018/04/04/20 [id number] Ambulatory [address] Repository 12/12/2017/12/26/19 [id number] Ambulatory [address] Repository PAYERS PAYERS ENCOUNTER GUARANTOR PAYER SUBSCRIBER SOURCE 09/22/2018 BRITTA Awad Primary NOT GIVENUNK [place] [id number] Insurance:SELF PAY [place], [place] Number: Effective Repository [phone]: [phone]) Date:2018-09-22 [id number] () 04/12/2018 Britta Awad Primary Britta Babin [id number] Insurance:CARESOURCEP ImmelDOB: [facility] [place]: [id number] [id number] Repository 23399Pyq: [phone]) Date:2017-12-15P O [id number] () [address]ATTN: [place] [address]VN: 04/12/2018 Secondary NOT GIVENUNK [place] Insurance:SELF PAY [facility] Number: Effective Repository Date:2017-12-15
== END 2018-09-22 17:03 | disposition home or self-care (01) ==
PROVIDERS: Emergency Provider Emergency Medicine
DX: H00.015 Hordeolum externum left lower eyelid (principal)
CPT/HCPCS: 99283

== ENCOUNTER 2019-05-14 11:59 | Emergency (ER) | payer MEDICAID, SELFPAY ==
[2019-05-14 12:00] VITALS: BP 157/98; PULSE 89; RESP 16; TEMP 36.7; O2SAT 98; BMI 21.5
--- NOTE | 2019-05-14 12:14 | CT_ITS ---
STUDY: CT BRAIN WITHOUT CONTRAST REASON FOR EXAM: Female, 48 years old. Migraine, right eye droop RADIATION DOSAGE (If Supplied By Facility): CTDIvol = ( 60.81 ) mGy, DLP = ( 1044.28 ) mGycm TECHNIQUE: Transaxial CT imaging of the brain was performed without administration of intravenous contrast material. Individualized dose optimization techniques were used for this CT. COMPARISON: No relevant priors. FINDINGS: Normal soft tissue structures. Normal calvarium. Normal size ventricles and extra-axial spaces for the patient's age. Normal white matter tracts of the cerebral hemispheres. Normal basal ganglia and thalami. Normal brainstem. Normal cerebellum. There is no intracranial hemorrhage. There are no findings of an acute ischemic infarction. Normal visualized paranasal sinuses. CT/Brain/Head without Contrast IMPRESSION: Normal unenhanced CT scan of the brain. Electronically Signed: Gal Lockhart MD at 12:57 EDT , Service support ,
[2019-05-14] MEDS: Ketorolac 60 MG/2 ML Vial IM (12:23)
--- NOTE | 2019-05-14 12:33 | ED.VISSUMM ---
- ER Visit Summary Date of Service: 05/14/19 Chief Complaint: Headache, bilateral eyelid drooping History of Present Illness: The patient is a 48 F who presents with headache and bilateral eyelid drooping. This started 8 days ago. She had Botox instilled into her forehead and around the eyes for cosmetic purposes. After this was done she did have some drooping of her eyelids. She did have blurry vision which is improving. Her headache is in the front part of her head. Denies any diplopia. She has tried Aleve at home without any relief. Physical Examination: Vital signs reviewed. HEENT exam shows mild ptosis to the bilateral eyelids. Her pupils are equally round and reactive. Her extraocular motions are all intact and normal. Heart is regular rate and rhythm without murmurs. Lungs are clear to auscultation. Abdomen is soft and nontender. Extremities reveal no edema. Skin exam normal. Neurologic exam normal. NIH is 0 Test Results: CT head normal Emergency Department Course and Treatment: The patient has very mild ptosis of the bilateral eyelids. She has no blurry vision, her extraocular motions are intact and normal. This ptosis was likely due to the Botox she had injected into her forehead and by her eyes. This will resolve on its own. She was able to drive here without any difficulty. I gave her Toradol for her headache. She will follow-up with her doctor who did the Botox injections Treatment Plan: [] Disposition: Discharge Impression: Ptosis, medically induced This note was generated with [employer] dictation software. It may contain incorrect words, spelling, and punctuation that were not noted in review of the chart prior to signing ED Disposition - Plan for ED Patient: Referrals: Care Physician,No Primary [Primary Care Provider] -
--- NOTE | 2019-05-14 13:09 | ED.DEP ---
ED Disposition - Plan for ED Patient: Disposition: Home or Assisted Living Instructions: HEADACHE, Unspecified Referrals: Care Physician,No Primary [Primary Care Provider] -
== END 2019-05-14 13:19 | disposition home or self-care (01) ==
PROVIDERS: Emergency Provider Emergency Medicine
DX: H02.403 Unspecified ptosis of bilateral eyelids (principal)
CPT/HCPCS: 70450; 96372; 99282

== ENCOUNTER 2019-09-04 09:42 | Emergency (ER) | payer MEDICAID, SELFPAY ==
[2019-09-04 09:42] VITALS: BP 98/45; PULSE 80; RESP 20; TEMP 36.4; O2SAT 99; BMI 21.9
--- NOTE | 2019-09-04 09:59 | RAD_ITS ---
STUDY: X-RAY - PELVIS AND LEFT HIP REASON FOR EXAM: Female, 48 years old. Hip pain following injury. TECHNIQUE: 3 views of the pelvis and hip. COMPARISON: None. FINDINGS: There is a non-specific bowel gas pattern. Normal visualized soft tissue structures. Normal bilateral iliac wings, sacroiliac joints and visualized sacrum. Normal bilateral superior and inferior pubic rami. Normal pubic symphysis. Normal bilateral ischial tuberosities. Normal visualized femoral head. Normal acetabulum. Normal hip joint. RAD/HIP, UNI W/ Pelvis 2-3 Views IMPRESSION: Normal x-ray examination of the pelvis and hip. Electronically Signed: Germain Lopez, at 10:55 EST , Service support ,
--- NOTE | 2019-09-04 09:59 | ED.VIS.GEN ---
History of Present Illness Chief Complaint: Lower Extremity Injury Detail of Chief Complaint: Left hip and lower back pain Informant: Patient Onset: Days - 6 days Current Severity: Moderate Maximum Severity: Severe Narrative: Patient developed pain in her low back and left hip 6 days ago. She saw her chiropractor 2 days ago. Patient states she was told she was dislocated. She showed me a copy of her x-ray which showed her left hip to be riding higher than her right. She states the chiropractor adjusted her lower back but now she has increased pain. She states pain is now shooting across her left buttock and down into the lateral portion of her left thigh. There is been no direct injury or trauma to her back other than her chiropractic manipulation. - Past Medical History (1) Anxiety Status: Acute Past Medical History - Allergies and Home Meds Allergies/Adverse Reactions: Allergies hydrocodone bitartrate [From Vicodin] Allergy (Verified 09/04/19 09:42) Unknown ibuprofen Allergy (Verified 09/04/19 09:42) Unknown oxycodone HCl [From Percocet] Allergy (Verified 09/04/19 09:42) Unknown Penicillins Allergy (Verified 09/04/19 09:42) Unknown Primary Care Physician: Care Physician,No Primary [Primary Care Provider] - Prior records reviewed: Yes Surgical History: hysterectomy Smoking Status: Never smoker Review of Systems General: Denies: Chills, Fever Eyes: Denies: Visual changes - bilaterally ENT: Denies: Bilateral ear pain Cardiovascular: Denies: Chest pain Respiratory: Denies: Dyspnea, Cough Gastrointestinal: Denies: Abdominal pain, Nausea, Vomiting, Diarrhea Musculoskeletal: Reports: Back pain, Extremity Pain Neurological: Denies: Headache, Weakness Allergy: Denies: Uticaria Physical Exam Vital Signs/Narrative: Vital Signs Temp Pulse Resp BP Pulse Ox 09/04/19 09:42 97.6 F L 80 20 H 98/45 L 99 Inital Vital Signs reviewed: Yes General: Well nourished, Well developed Head: Normocephalic ENT: Moist mucous membranes Neck: Supple Cardiovascular: Regular rate, Regular rhythm Respiratory: No distress, CTA bilaterally Abdomen: Soft, Nontender Back: - - Reproducible tenderness in the left lumbar paraspinals and over the sciatic notch. Extremities: Negative for: Edema Skin: Normal color, No rash Neurological: Alert, Oriented x3, - - Normal strength is strong distal pulses. Diagnostic/Tx/Re-eval Impressions Hip/Pelvis X-Ray 09/04/19 09:59 IMPRESSION: Normal x-ray examination of the pelvis and hip. Electronically Signed: Germain Lopez, at 10:55 EST , Service support , 09/04/19 09:59 HIP, UNI W/ Pelvis 2-3 Views [RAD] Stat - Medical Decision Making Patient was initially given tramadol and Valium secondary to her medication allergies. On repeat evaluation she reported minimal improvement. She was given an IM injection of morphine and at this time does have some improvement. X-ray results are discussed with her. Patient will be given tramadol, Valium, and prednisone. She will be referred to Dr. Elliott, next on the no doc list. ED Disposition - Plan for ED Patient: Disposition: Home or Assisted Living Diagnosis: Sciatica Instructions: BACK PAIN w/ SCIATICA Prescriptions: Prednisone 10 mg PO UD #33 tablet traMADol [Ultram] 50 mg PO Q4H PRN PRN 3 Days #20 tablet PRN Reason: Pain Diazepam [Valium] 5 mg PO Q8 PRN #10 tablet PRN Reason: Muscle Spasm Referrals: Efraín Elliott MD [STAFF PHYSICIAN] - 1-2 Weeks
[2019-09-04] MEDS: traMADol 50 MG Tablet 100 MG PO (10:07)
[2019-09-04] MEDS: diazePAM 5 MG Tablet PO (10:07)
[2019-09-04] MEDS: Morphine 4 MG/ML Syringe IM (11:25)
[2019-09-04 12:45] VITALS: BP 116/75; PULSE 69; RESP 17; O2SAT 96
--- NOTE | 2019-09-04 12:46 | ED.RN ---
DISCHARGE INSTRUCTIONS GIVEN TO AND REVIEWED WITH PATIENT, PATIENT DENIES QUESTIONS OR CONCERNS AND VOICES UNDERSTANDING OF DISCHARGE INSTRUCTIONS. PT AMBULATES OUT OF ROOM WITHOUT DIFFICULTY.
== END 2019-09-04 12:46 | disposition home or self-care (01) ==
PROVIDERS: Emergency Provider Emergency Medicine
DX: M54.42 Lumbago with sciatica, left side (principal)
CPT/HCPCS: 73502; 96372; 99283

== ENCOUNTER → 2020-07-13 17:46 | Outpatient (CLI) | payer MEDICAID, SELFPAY | PROVIDERS: Referring Provider Ophthalmology; Visit Provider Ophthalmology | DX: S05.90XA Unspecified injury of unspecified eye and orbit, initial encounter (principal) | CPT/HCPCS: 87070; 87205 ==

== ENCOUNTER 2022-02-12 13:22 | Emergency (ER) | payer MEDICAID, SELFPAY ==
[2022-02-12 13:24] VITALS: BP 145/78; PULSE 87; RESP 16; TEMP 36.8; O2SAT 99; BMI 22.1
--- NOTE | 2022-02-12 13:37 | CT_ITS ---
STUDY: CT ABDOMEN AND PELVIS WITH CONTRAST REASON FOR EXAM: Female, 51 years old. Right lower quadrant pain. RADIATION DOSAGE (If Supplied By Facility): CTDIvol = ( 9.08 ) mGy, DLP = ( 273.49 ) mGycm TECHNIQUE: Transaxial images were obtained from the dome of the diaphragm to the symphysis pubis without oral contrast. IV 100mL Isovue-370 was administered. Sagittal and coronal images were reconstructed. Individualized dose optimization techniques were used for this CT. COMPARISON: 12/10/2015 FINDINGS: The visualized lung bases are unremarkable. Partially visualized bilateral breast implants. Normal heart size. Stable 9 mm right lobe liver cyst. Additional small low-density lesions/cysts. Normal gallbladder and extrahepatic biliary system. Normal spleen. Normal pancreas. Normal bilateral adrenal glands. Normal right kidney. Normal left kidney. Distended fluid-filled stomach. Normal caliber small bowel loops. Fecal retention. No evidence of acute diverticulitis. The appendix is visualized and appears normal. Normal abdominal aorta. Normal inferior vena cava. Normal retroperitoneum. Normal urinary bladder. There is absence of the uterus consistent with a prior hysterectomy. Normal abdominal wall. Normal osseous structures. CT/Abdomen/Pelvis W IV Cont ONLY IMPRESSION: No evidence of acute appendicitis or acute diverticulitis. Liver cysts. Electronically Signed: Travon Mendoza MD at 14:21 EDT ,
--- NOTE | 2022-02-12 13:37 | EKG12_ITS ---
Test Reason : ABD PAIN Blood Pressure : / mmHG Vent. Rate : 070 BPM Atrial Rate : 070 BPM P-R Int : 140 ms QRS Dur : 088 ms QT Int : 400 ms P-R-T Axes : 077 058 056 degrees QTc Int : 432 ms Normal sinus rhythm Normal ECG Confirmed by KAREN HORN, GILBERT ([id number]), social media editor GISELA MIR ([id number]) on 02/15/2022 9:18:41 AM Referred By: CARLOS ALBERTO Confirmed By:GILBERT JONES MD
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
[2022-02-12] MEDS: Ondansetron 4 MG/2 ML Vial IV (13:44)
[2022-02-12] MEDS: fentaNYL 100 MCG/2 ML Ampul 25 MCG IV (13:45)
[2022-02-12 14:03] LABS: Absolute Lymphocyte Count 1.53 X10^3/uL (0.83-4.51); Absolute Neutrophil Count 6.2 X10^3/uL (2.0-7.7); Basophil# 0.04 X10^3/uL; Basophil% 0.5 % (0-1); Eosinophil# 0.03 X10^3/uL; Eosinophils% 0.4 % (0-5); Hematocrit 44.5 % (37-47); Lymphocyte # 1.53 X10^3/ul (0.83-4.51); Lymphocyte % 18.6 % (19-41); Mean Corp Hgb Conc 31.5 g/dL (32-36); Mean Corpuscular Hgb 29.1 pg (27.0-32.0); Mean Corpuscular Volume 92.5 fL (81-99); Mean Platelet Vol. 10.7 fl (6.2-12.0); Monocyte# 0.39 X10^3/uL; Monocyte% 4.7 % (0-10); NRBC Flagged by Analyzer 0 % (0-5); Neutrophil # 6.21 X10^3/uL (2.7-7.7); Neutrophil % 75.4 % (47-70); Platelet Count 286 K/mm3 (150-450); RBC Distribution Width CV 12.6 % (11.6-14.6); RBC Distribution Width SD 43.3 fl (35.1-43.9); Red Blood Count 4.81 M/mm3 (4.2-5.4); White Blood Count 8.2 K/mm3 (4.4-11.0)
[2022-02-12 14:17] LABS: ALB/GLOB Ratio 1.2 RATIO (0.9-2.4); AST(SGOT) 23 U/L (15-37); Alanine Aminotransfer ALT/SGPT 27 U/L (13-56); Albumin, Serum 4.4 g/dL (3.2-5.0); Alkaline Phosphatase 82 U/L (45-117); Anion Gap 7 (5-15); BUN 16 mg/dL (7-18); BUN/Creat Ratio 16.4 RATIO (10-20); Calcium,Total 9.1 mg/dL (8.5-10.1); Chloride 103 mmol/L (98-107); Creatinine, Serum 0.98 mg/dL (0.55-1.02); EST Glomerular Filtration Rate 63 mL/min (>60); Est Glom Filt Rate - Afr Amer 77 mL/min (>60); Estimated Creatinine Clearance 54.92 ml/min; Globulin 3.8 g/dL (2.2-4.2); Glucose 113 mg/dL (74-106); Lipase 101 U/L (73-393); Potassium 3.8 mmol/L (3.5-5.1); Protein, Total 8.2 g/dL (6.4-8.2); Sodium Level 138 mmol/L (136-145)
[2022-02-12 14:36] LABS: Mucous, Urine 0 SEEN /hpf (<or=2+); Red Blood Cells-Urine 0 SEEN /hpf (0-5); Squamous Epithelial Cells - UA 0 SEEN /hpf (5-10); White Blood Cells 0 SEEN /hpf (0-5)
[2022-02-12 14:39] LABS: Color, Urine Yellow (Yellow); Glucose, Dipstick Normal (Normal); Ketone-Dipstick 15 mg/dl (Negative); Leukocyte Esterase-Dipstick Negative /ul (Negative); Nitrite-Dipstick Negative (Negative); Occult Blood-Urine Negative /ul (Negative); Protein-Dipstick Negative (Negative); Urine Bilirubin Dipstick Negative (Negative); Urine Clarity Clear (Clear); Urine Urobilinogen Normal (Normal)
[2022-02-12 14:53] LABS: Bacteria RARE /hpf (None Seen)
== END 2022-02-12 15:53 | disposition home or self-care (01) ==
PROVIDERS: Emergency Provider Emergency Medicine; Visit Provider Emergency Medicine
DX: R10.11 Right upper quadrant pain (principal); K80.50 Calculus of bile duct without cholangitis or cholecystitis without obstruction
CPT/HCPCS: 74177; 80053; 81001; 83690; 85025; 93005; 96361; 96374; 96375; 99283; J7030; Q9967; A4216; J2405

== ENCOUNTER 2023-02-09 11:09 | Emergency (ER) | payer MEDICAID, SELFPAY ==
[2023-02-09 11:10] VITALS: BP 132/86; PULSE 77; RESP 18; TEMP 37; O2SAT 100; BMI 22.6
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
--- NOTE | 2023-02-09 11:25 | EKG12_ITS ---
Test Reason : GENERAL Blood Pressure : / mmHG Vent. Rate : 072 BPM Atrial Rate : 072 BPM P-R Int : 138 ms QRS Dur : 086 ms QT Int : 412 ms P-R-T Axes : 080 043 041 degrees QTc Int : 451 ms Normal sinus rhythm Normal ECG Confirmed by ALBINO HORN, ANNA ([id number]), digital editor GISELA MIR ([id number]) on 02/13/2023 11:44:27 AM Referred By: Dennis Doherty Confirmed By:ANNA POSADA MD
--- NOTE | 2023-02-09 11:26 | EDS_ITS ---
HPI History of Present Illness Chief Complaint: General Illness Narrative Narrative: 52-year-old female past medical history of anxiety/PTSD, does not currently take medications, presents with abdominal spasming, not feeling right. She admits to taking THC gummy today. She states that her friend gave it to her. Additionally, she states that she usually does not take Gummies. She states she does not feel well. She denies any nausea or vomiting, but states that she feels off. Her daughter is present at the bedside, and states that the patient has been under a lot of stress including moving out of of her mother's house, and she recently got out of a relationship that was long-term. Patient denies any suicidal ideation. [facility] Medical History Anxiety Sciatica Home Medications dicyclomine 20 mg tablet 20 mg PO TID PRN cramps #20 tabs 02/12/22 [Rx Last Taken Unknown] ondansetron 4 mg disintegrating tablet 4 mg PO Q8H PRN nausea and vomiting #10 tabs 02/12/22 [Rx Last Taken Unknown] Allergy/AdvReac Type Severity Reaction Status Date / Time hydrocodone bitartrate Allergy Unknown Verified 02/09/23 11:10 [From Vicodin] ibuprofen Allergy Unknown Verified 02/09/23 11:10 oxycodone HCl [From Percocet] Allergy Unknown Verified 02/09/23 11:10 Penicillins Allergy Unknown Verified 02/09/23 11:10 Surgical History History of hysterectomy Social History Smoking Status: Never smoker ROS ROS ED ROS Narrative Constitutional: No fever, no chills. HEENT: No sore throat. No neck pain. No loss of vision. No rhinorrhea. Cardiovascular: No chest pain. No palpitations. No pedal edema. Respiratory: No cough, no shortness of breath. Abdominal: No abdominal pain. Occasional abdominal cramping. No nausea. No vomiting. Genitourinary: No dysuria. No hematuria. Musculoskeletal: No myalgias. No arthralgias. Neurologic: No headaches. No dizziness. No lightheadedness. Feels shaky. Skin: No rash. No change in color. Psychiatric: No depression. No anxiety. No suicidal ideation. Multiple psycho social stressors EXAM Physical Exam Narrative Exam Narrative: Afebrile. Vital signs noted. Sat down on cot, then started shaking all 4 limbs, but remained conscious. HEENT: Normocephalic. Atraumatic. PERRL, EOMI. Neck soft and supple. No point tenderness or step off. Cardiovascular: Regular rate and rhythm. No murmurs, rubs, or gallops appreciated. Respiratory: No tachypnea. Lungs clear to auscultation bilaterally. Gastrointestinal: Abdomen soft, nontender, with normoactive bowel sounds. No rebound or guarding. Neurological: Awake. Alert. Nonfocal, nonlateralizing. Ambulatory in ED with assistance. Skin: No rash. Normal color. No pallor. Musculoskeletal: No pedal edema. Full range of motion extremities. Psychiatric: Denies suicidal ideation. Const Vital Signs: 02/09/23 11:10 02/09/23 11:13 Temperature 98.6 F Temperature Source Temporal Pulse Rate 77 Respiratory Rate 18 Respiratory Effort Normal Non-Labored Respiratory Pattern Normal Blood Pressure 132/86 H Blood Pressure Mean 101 Pulse Ox 100 Oxygen Delivery Method Room Air MDM MDM MDM Narrative Medical decision making narrative: I do feel she is probably having more side effects from ingestion of THC. Her daughter states that she the gummy was a large 1, and you are supposed to take a bite of it. I will perform medical screening examinations in the event that she needs evaluation by social work for her stressors in her life. We will also perform an ethyl alcohol and urine drug screen although she admittedly has already ingested THC and unknown amount. EKG was obtained and interpreted by myself which demonstrates normal sinus rhythm at 72 bpm without ectopy or acute ST changes. No STEMI. No significant change from an EKG dated February 12, 2022. I reviewed her laboratory work and she has a normal white count of 8.8, hemoglobin normal at 12.2, platelet count normal at 249. CMP is grossly unremarkable with a sodium normal at 137, potassium 3.8, chloride 106, BUN slightly elevated 22 with a normal creatinine of 0.91. Urine for drugs of abuse is positive for cannabinoids, and ethyl alcohol is negative. Social work did speak with the patient and gave her outpatient resources, I do not feel that she requires emergent psychiatric hospitalization. Additionally, I do feel a lot of her symptoms are secondary to THC intoxication. She was told to avoid use of this in the future. Upon repeat examination at approximately 1400, she has improved and feeling better, but states she feels tired. This is also affect of her ingestion. At this point in time, I feel she can be discharged safely home with follow-up. Return instructions to the emergency department were reviewed. Disposition is discharged home in stable condition. Lab Data Attestation: I reviewed the patient's lab results. Labs: Laboratory Results - last 24 hr 02/09/23 02/09/23 02/09/23 11:25 11:30 11:30 WBC 8.8 RBC 4.19 L Hgb 12.2 Hct 39.3 MCV 93.8 MCH 29.1 MCHC 31.0 L RDW Std Deviation 42.2 RDW Coeff of Flori 12.2 Plt Count 249 MPV 10.3 Immature Gran % (Auto) 0.900 Neut % (Auto) 83.1 H Lymph % (Auto) 12.2 L [place] % (Auto) 3.2 Eos % (Auto) 0.1 Baso % (Auto) 0.5 Absolute Neuts (auto) 7.3 Absolute Lymphs (auto) 1.07 Nucleated RBC % 0 Sodium 137 Potassium 3.8 Chloride 106 Carbon Dioxide 27.0 Anion Gap 4 L BUN 22 H Creatinine 0.91 Estim Creat Clear Calc 55.90 Est GFR (MDRD) Af Amer 83 Est GFR (MDRD) Non-Af 68 BUN/Creatinine Ratio 24.1 H Glucose 109 H Calcium 8.9 Total Bilirubin 0.30 AST 19 ALT 23 Alkaline Phosphatase 108 Total Protein 7.5 Albumin 4.2 Globulin 3.3 Albumin/Globulin Ratio 1.3 Urine Opiates Screen NEGATIVE Urine Methadone Screen NEGATIVE Ur Barbiturates Screen NEGATIVE Ur Phencyclidine Scrn NEGATIVE Ur Amphetamines Screen NEGATIVE MDMA (Ecstasy) Screen NEGATIVE U Benzodiazepines Scrn NEGATIVE Urine Cocaine Screen NEGATIVE U Cannabinoids Screen POSITIVE H Ur Drug Screen Comment Ethyl Alcohol 02/09/23 11:30 WBC RBC Hgb Hct MCV MCH MCHC RDW Std Deviation RDW Coeff of Flori Plt Count MPV Immature Gran % (Auto) Neut % (Auto) Lymph % (Auto) [place] % (Auto) Eos % (Auto) Baso % (Auto) Absolute Neuts (auto) Absolute Lymphs (auto) Nucleated RBC % Sodium Potassium Chloride Carbon Dioxide Anion Gap BUN Creatinine Estim Creat Clear Calc Est GFR (MDRD) Af Amer Est GFR (MDRD) Non-Af BUN/Creatinine Ratio Glucose Calcium Total Bilirubin AST ALT Alkaline Phosphatase Total Protein Albumin Globulin Albumin/Globulin Ratio Urine Opiates Screen Urine Methadone Screen Ur Barbiturates Screen Ur Phencyclidine Scrn Ur Amphetamines Screen MDMA (Ecstasy) Screen U Benzodiazepines Scrn Urine Cocaine Screen U Cannabinoids Screen Ur Drug Screen Comment Ethyl Alcohol < 3.0 Management Discussion w/another healthcare provider: sort line worker/Case management Discharge Plan Triage Chief Complaint: General Illness ED Provider: Dennis Doherty Dx/Rx/DC Orders Clinical Impression: Shakiness, Stress reaction, Intoxication by drug Instructions: ED Anxiety Reaction, ED Marijuana Abuse Prescriptions: No Action ondansetron 4 mg tablet,disintegrating 4 mg PO Q8H PRN (Reason: nausea and vomiting) Qty: 10 0RF dicyclomine 20 mg tablet 20 mg PO TID PRN (Reason: cramps) Qty: 20 0RF Primary Care Provider: Care Physician,No Primary Referrals: Care Physician,No Primary [Primary Care Provider] - Activity Restrictions/Additional Instructions: Avoid use of THC products, including ingestibles. Disposition Disposition: Home, Self Care
[2023-02-09] MEDS: 0.9% Normal Saline 1,000 ML 1000 ML IV (11:35)
[2023-02-09 11:42] LABS: Absolute Lymphocyte Count 1.07 X10^3/uL (0.83-4.51); Absolute Neutrophil Count 7.3 X10^3/uL (2.0-7.7); Basophil# 0.04 X10^3/uL; Basophil% 0.5 % (0-1); Eosinophil# 0.01 X10^3/uL; Eosinophils% 0.1 % (0-5); Hematocrit 39.3 % (37-47); Hemoglobin 12.2 g/dL (12.0-15.0); Lymphocyte # 1.07 X10^3/ul (0.83-4.51); Lymphocyte % 12.2 % (19-41); Mean Corpuscular Hgb 29.1 pg (27.0-32.0); Mean Corpuscular Volume 93.8 fL (81-99); Mean Platelet Vol. 10.3 fl (6.2-12.0); Monocyte# 0.28 X10^3/uL; Monocyte% 3.2 % (0-10); NRBC Flagged by Analyzer 0 % (0-5); Neutrophil % 83.1 % (47-70); Platelet Count 249 K/mm3 (150-450); RBC Distribution Width CV 12.2 % (11.6-14.6); RBC Distribution Width SD 42.2 fl (35.1-43.9); Red Blood Count 4.19 M/mm3 (4.2-5.4); White Blood Count 8.8 K/mm3 (4.4-11.0)
[2023-02-09 11:53] LABS: Amphetamine Urine VISTA NEGATIVE (<1000 ng/mL); Barbiturate Urine VISTA NEGATIVE (< 200 ng/mL); Benzodiazepine Urine VISTA NEGATIVE (< 200 ng/mL); Cocaine Urine VISTA NEGATIVE (< 300 ng/mL); Ecstacy Urine VISTA NEGATIVE (< 500 ng/mL); Methadone Urine VISTA NEGATIVE (< 300 ng/mL); PCP Urine VISTA NEGATIVE (< 25 ng/mL); THC Urine VISTA POSITIVE (< 50 ng/mL); Vista UDS pH Range 6
[2023-02-09 11:55] LABS: ALB/GLOB Ratio 1.3 RATIO (0.9-2.4); AST(SGOT) 19 U/L (15-37); Alanine Aminotransfer ALT/SGPT 23 U/L (13-56); Albumin, Serum 4.2 g/dL (3.2-5.0); Alkaline Phosphatase 108 U/L (45-117); Anion Gap 4 (5-15); BUN 22 mg/dL (7-18); BUN/Creat Ratio 24.1 RATIO (10-20); Calcium,Total 8.9 mg/dL (8.5-10.1); Chloride 106 mmol/L (98-107); Creatinine, Serum 0.91 mg/dL (0.55-1.02); EST Glomerular Filtration Rate 68 mL/min (>60); Est Glom Filt Rate - Afr Amer 83 mL/min (>60); Globulin 3.3 g/dL (2.2-4.2); Glucose 109 mg/dL (74-106); Potassium 3.8 mmol/L (3.5-5.1); Protein, Total 7.5 g/dL (6.4-8.2); Sodium Level 137 mmol/L (136-145)
[2023-02-09 12:37] LABS: Alcohol, Blood (Medical)-Serum < 3.0 mg/dL
--- NOTE | 2023-02-09 13:11 | CM.ED ---
Social Work Note Referral Source: case find Referral Reason: no PCP SW met with patient and introduced herself and role as [facility] Can Worker. Patient was seated on hospital bed and agreeable to speak with SW. SW inquired about patient's insurance and current PCP. Patient verified insurance and reports no current PCP. SW provided patient with a list of local PCPs in network with patient's insurance and accepting new patients. Patient was receptive towards list and briefly reviewed recent stressors. Patient explained she is engaged in counseling services and is still trying to understand her diagnosis of PTSD. Patient also reports recently having to move out of her mother's home and is staying at a camper by the [place]. SW reviewed local housing and meal assistance programs on [facility] resource list. Patient was receptive towards list and voiced no other needs. SW remains available if needs arise. SW updated MD Doherty regarding resources provided. Stefanie Murillo RACK MAKER, KATIA
[2023-02-09 14:31] VITALS: BP 125/79; PULSE 61; RESP 15; O2SAT 98
== END 2023-02-09 14:33 | disposition home or self-care (01) ==
PROVIDERS: Emergency Provider Emergency Medicine; Referring Provider Emergency Medicine; Visit Provider Emergency Medicine
DX: F43.9 Reaction to severe stress, unspecified (principal)
CPT/HCPCS: 80053; 80307; 82077; 85025; 93005; 96360; 96361; 99283; J7030

== ENCOUNTER 2024-05-05 16:25 | Emergency (ER) | payer MEDICAID, SELFPAY ==
[2024-05-05 16:27] VITALS: BP 129/74; PULSE 71; RESP 14; TEMP 36.8; O2SAT 100; BMI 22.5
--- NOTE | 2024-05-05 16:45 | EKG12_ITS ---
Test Reason : ANXIETY Blood Pressure : / mmHG Vent. Rate : 058 BPM Atrial Rate : 058 BPM P-R Int : 140 ms QRS Dur : 092 ms QT Int : 424 ms P-R-T Axes : 080 050 042 degrees QTc Int : 416 ms Sinus bradycardia Otherwise normal ECG Confirmed by REGINALDO HORN, EMILE ([id number]), book editor CLARENCE MEJIA ([id number]) on 05/08/2024 9:50:23 AM Referred By: Confirmed By:HARVEY HAIR MD
--- NOTE | 2024-05-05 16:52 | EX.ED.DYSGE1 ---
HPI <SOTO Saleh - Last Filed: 05/05/24 18:40> History of Present Illness Chief Complaint: Anxiety Narrative Narrative: Patient is a 53-year-old female with history of anxiety, depression, PTSD presents the emergency department for multiple complaints. Patient states she was at work, she been having pain to her right hip for the last 5 days, the pain was more severe today when she had difficulty ambulating. She then became anxious, began feeling hot and sweaty, pain that shot from her toes all the way to her neck, one of her workers googled the symptoms and said that she might have a stroke. She then called the ambulance. Patient states she could not stop shaking and she was breathing fast. Denies any cardiopulmonary history, denies any recent car rides, denies any travel. Denies any history to blood clots in the legs or lungs. PFSH <SOTO Saleh - Last Filed: 05/05/24 18:40> PFSH Medical History Anxiety Sciatica Home Medications ?Medication ?Instructions ?Recorded ?Last Taken ?Type dicyclomine 20 mg tablet 20 mg PO TID PRN cramps #20 tabs 02/12/22 Unknown Rx ondansetron 4 mg disintegrating 4 mg PO Q8H PRN nausea and 02/12/22 Unknown Rx tablet vomiting #10 tabs Allergy/AdvReac Type Severity Reaction Status Date / Time hydrocodone bitartrate (From Allergy Unknown Verified 02/09/23 11:10 Vicodin) ibuprofen Allergy Unknown Verified 02/09/23 11:10 oxycodone HCl (From Percocet) Allergy Unknown Verified 02/09/23 11:10 Penicillins Allergy Unknown Verified 02/09/23 11:10 Surgical History History of hysterectomy Social History Smoking Status: Never smoker ROS <SOTO Saleh - Last Filed: 05/05/24 18:40> ROS ED ROS Narrative Constitutional: Negative for fever, chills, weight loss, weakness Eyes: Negative for vision loss, vision change, double vision ENT: Negative for any sore throat, ear pain, congestion Cardiovascular: Negative for any chest pain, palpitations. Positive for chest tightness Respiratory: Negative for any cough, sputum production, hemoptysis, dyspnea on exertion, orthopnea. Positive for dyspnea Gastrointestinal: Negative for any abdominal pain, nausea, vomiting, diarrhea, constipation, blood in stool, blood in vomit : Negative for any urinary frequency, dysuria, retention, blood in urine Muscle skeletal: Negative for any neck pain, back pain. Positive right hip pain Neurological: Negative for any headache, syncope, dizziness Skin: Negative for any rashes, itching, abrasions, lacerations Psychiatric: Negative for any depression, stress, suicidal ideation, homicidal ideation. Positive for anxiety Hematologic: Negative for any excessive bruising, easy bleeding EXAM <SOTO Saleh - Last Filed: 05/05/24 18:40> Physical Exam Narrative Exam Narrative: Vital signs reviewed. Patient is alert and oriented x 4, patient is shaking appears anxious, tearful. HEET: Head normocephalic atraumatic, TMs clear bilaterally. Posterior pharynx is clear, moist mucous membranes. Nares clear bilaterally. Neck: Supple with no lymphadenopathy or tenderness. No signs of meningismus. Cardiac: Regular rate and rhythm no murmurs gallops or rubs, equal peripheral pulses bilaterally. Respiratory: Lungs clear to auscultation bilaterally. No chest tenderness. Abdomen: Soft, nontender, nondistended. No abdominal bruit or pulsatile masses. No hepatosplenomegaly Extremities: No peripheral edema, no signs of gross trauma or deformity. Active full range of motion of all extremities. Patient's right hip was able to flex and extend without difficulty, abduction adduction not exhibit any pain. Neuro: Cranial nerves II through XII intact, no focal neurological deficits. Denies stroke scale 0. Skin: Clean dry and intact with no rash, purpura, petechiae, vesicles or pustules. Backs/flank: No CVA tenderness, no midline spinal tenderness, no deformity. Psych: Normal mood and affect. No SI, HI or acute psychosis. Patient is tearful, she does appear anxious Const Vital Signs: 05/05/24 16:27 Temperature 98.2 F Temperature Source Oral Pulse Rate 71 Respiratory Rate 14 Blood Pressure 129/74 H Blood Pressure Mean 92 Pulse Ox 100 Oxygen Delivery Method Room Air <Dr. Jimy Montaño, DO - Last Filed: 05/05/24 18:33> Physical Exam Const Vital Signs: 05/05/24 16:27 Temperature 98.2 F Temperature Source Oral Pulse Rate 71 Respiratory Rate 14 Blood Pressure 129/74 H Blood Pressure Mean 92 Pulse Ox 100 Oxygen Delivery Method Room Air [facility] <Jos Castillo SOTO - Last Filed: 05/05/24 18:40> [facility] Lab Data Labs: Laboratory Results - last 24 hr 05/05/24 05/05/24 16:31 16:53 WBC 7.0 RBC 4.50 Hgb 12.8 Hct 40.1 MCV 89.1 MCH 28.4 MCHC 31.9 L RDW Std Deviation 39.7 RDW Coeff of Flori 12.1 Plt Count 269 MPV 10.3 Immature Gran % (Auto) 0.300 Neut % (Auto) 62.9 Lymph % (Auto) 29.6 [place] % (Auto) 5.6 Eos % (Auto) 0.9 Baso % (Auto) 0.7 Absolute Neuts (auto) 4.4 Absolute Lymphs (auto) 2.07 Nucleated RBC % 0 Sodium 137 Potassium 3.5 Chloride 105 Carbon Dioxide 24.0 Anion Gap 8 BUN 13 Creatinine 0.90 Estim Creat Clear Calc 55.86 Est GFR (MDRD) Af Amer 83 Est GFR (MDRD) Non-Af 69 BUN/Creatinine Ratio 14.4 Glucose 115 H Calcium 9.2 Total Bilirubin 0.70 AST 21 ALT 18 Alkaline Phosphatase 86 Troponin I High Sens 16 Total Protein 7.5 Albumin 4.3 Globulin 3.2 Albumin/Globulin Ratio 1.3 POC Glucose 123 H Radiography Diagnostic Testing: Clinical Impression(s) from Imaging Studies Chest X-Ray 05/05/24 17:05 IMPRESSION: No radiographic evidence of acute cardiopulmonary disease. Electronically Signed: Devin Rayo MD at 17:38 EDT , Hip/Pelvis X-Ray 05/05/24 17:05 IMPRESSION: Degenerative findings in both hips. Electronically Signed: Devin Rayo MD at 18:02 EDT , EKG Sinus bradycardia: Attestation: I personally reviewed and interpreted this EKG as follows: Interpretation: Sinus Rhythm Comments: Sinus bradycardia with a rate of 58, MI interval 140 ms, QRS duration 92 ms, no acute ST elevation, no acute infarct noted. Treatment and Re-Evaluation :: Differential diagnosis includes however is not limited to: Anxiety, ACS, MS, electrolyte abnormality, hip strain, hip fracture Patient on my initial evaluation was tearful, anxious, vital signs are stable. Patient was shaky, neurological exam was unremarkable. Presenting to the emergency department for anxiety, chest pressure, shortness of breath, right hip pain. Patient will receive x-rays of the right hip, chest x-ray. All radiologic examinations were read, reviewed by the emergency department attending. From these reads, a plan of care will be put in place. Laboratory values will be included CBC CMP troponin. IV fluids, 1 mg IV Ativan will be administered. Patient will be reevaluated On reevaluation, the patient was feeling well. Patient's laboratory values showed normal CBC, patient's chemistries were unremarkable, troponin was negative, lipase was negative. Patient's chest x-ray showed no radiographic evidence of acute process. Patient's hip x-ray shows degenerative findings of both hips, arthritis. I spoke with the patient regarding this, she will be given a dose of Toradol. She will follow-up with orthopedics. She struck to perform gentle stretching, ice and heat. All questions were answered, patient stable for discharge. <Dr. Jimy Montaño, DO - Last Filed: 05/05/24 18:33> [facility] Narrative Medical decision making narrative: I have personally performed a face to face assessment of the patient and have reviewed the ADELINE Note. I performed a substantive portion of the visit including all aspects of the following. My helms findings include: History: Patient presents with right hip, leg, chest, and abdominal pain that began today. Patient states she was at work when her hip felt like it was popping. Patient states her pain then radiated up into her abdomen and into her chest. Patient states a friend at work googled her symptoms and thought she could be having a heart attack or a stroke. Patient denies any weakness of her leg. Patient states it just hurts to move. Patient states her pain is better when she is able to sit down. Patient states her pain is worse when she is standing and walking. Patient denies any fevers or chills. Exam: Vital signs are stable. Patient is afebrile. Patient is in no acute distress. Oral mucosa is pink and moist. Neck is supple. Trachea is midline. There is no JVD. Heart was regular rate and rhythm. Lungs are clear and equal bilateral. Abdomen is soft. Bowel sounds are normal. There is no tenderness. There is no guarding noted. Extremities are intact. There are no deformities noted. There is no edema or calf tenderness. There is some tenderness over the right hip area. Pedal pulses are equal bilaterally. Medical Decision Making: Differential diagnosis includes hip fracture, dislocation, pneumonia, pneumothorax, cardiac dysrhythmia, cardiac ischemia, electrolyte abnormality, and anxiety. EKG will be obtained to assess for cardiac dysrhythmia and cardiac ischemia. Chest x-ray will be obtained to assess for pneumonia and pneumothorax. X-rays of the right hip will be obtained to assess for fracture and dislocation. CBC will be obtained to assess for leukocytosis and anemia. Comprehensive metabolic profile will be obtained to assess for hepatic function, renal function, and electrolyte abnormality. High-sensitivity troponin will be obtained to assess for cardiac ischemia. Patient was given IV fluids and a dose of Ativan. CBC was reviewed and was within normal limits. Comprehensive metabolic profile was reviewed and was essentially within normal limits. High-sensitivity troponin was reviewed and was normal at 16. Portable 1 view chest x-ray was obtained. On my independent interpretation, lung garvey are clear. There is normal cardiac silhouette. Bony thorax is normal. There is no acute process noted. Radiologist also interpreted the x-ray and agrees. X-rays of the right hip were obtained. There are 3 views. On my independent interpretation, there is no acute fracture or dislocation noted. There are some degenerative changes noted. Radiologist also interpreted the x-rays and agrees. EKG was obtained. On my independent interpretation, it showed sinus bradycardia with a rate of 58. MI interval, QRS interval, and QTc intervals are all within normal limits. [place] is normal. There are no acute ST or T wave changes noted. Patient was advised of her findings. Patient was instructed to follow-up with her primary care physician in 5 to 7 days. Patient understood and was agreeable with the plan. All questions were answered. Lab Data Labs: Laboratory Results - last 24 hr 05/05/24 05/05/24 16:31 16:53 WBC 7.0 RBC 4.50 Hgb 12.8 Hct 40.1 MCV 89.1 MCH 28.4 MCHC 31.9 L RDW Std Deviation 39.7 RDW Coeff of Flori 12.1 Plt Count 269 MPV 10.3 Immature Gran % (Auto) 0.300 Neut % (Auto) 62.9 Lymph % (Auto) 29.6 [place] % (Auto) 5.6 Eos % (Auto) 0.9 Baso % (Auto) 0.7 Absolute Neuts (auto) 4.4 Absolute Lymphs (auto) 2.07 Nucleated RBC % 0 Sodium 137 Potassium 3.5 Chloride 105 Carbon Dioxide 24.0 Anion Gap 8 BUN 13 Creatinine 0.90 Estim Creat Clear Calc 55.86 Est GFR (MDRD) Af Amer 83 Est GFR (MDRD) Non-Af 69 BUN/Creatinine Ratio 14.4 Glucose 115 H Calcium 9.2 Total Bilirubin 0.70 AST 21 ALT 18 Alkaline Phosphatase 86 Troponin I High Sens 16 Total Protein 7.5 Albumin 4.3 Globulin 3.2 Albumin/Globulin Ratio 1.3 POC Glucose 123 H Radiography Diagnostic Testing: Clinical Impression(s) from Imaging Studies Chest X-Ray 05/05/24 17:05 IMPRESSION: No radiographic evidence of acute cardiopulmonary disease. Electronically Signed: Devin Rayo MD at 17:38 EDT , Hip/Pelvis X-Ray 05/05/24 17:05 IMPRESSION: Degenerative findings in both hips. Electronically Signed: Devin Rayo MD at 18:02 EDT , Discharge Plan Triage Chief Complaint: Anxiety ED Midlevel Provider: Jos Castillo ED Provider: Jimy Montaño Dx/Rx/DC Orders Clinical Impression: Degenerative arthritis of hip, Anxiety Instructions: ED Anxiety Reaction, ED Osteoarthritis Prescriptions: No Action ondansetron 4 mg tablet,disintegrating 4 mg PO Q8H PRN (Reason: nausea and vomiting) Qty: 10 0RF dicyclomine 20 mg tablet 20 mg PO TID PRN (Reason: cramps) Qty: 20 0RF Primary Care Provider: Care Physician,No Primary Referrals: Abraham Cobos, [Med Staff - Active Staff] - Care Physician,No Primary [Primary Care Provider] - Activity Restrictions/Additional Instructions: Your lab values were normal. You do have some degenerative changes in both her hips, this is just arthritis. You need to follow-up outpatient. Perform gentle stretching, ice and heat. Print Language: Tajik Disposition Disposition: Home, Self Care
[2024-05-05] MEDS: LORazepam 2 MG/ML Syringe 1 MG IV (16:54)
[2024-05-05] MEDS: 0.9% Normal Saline (1000mL) 1,000 ML 999 ML IV (16:55)
[2024-05-05 17:01] LABS: Absolute Lymphocyte Count 2.07 X10^3/uL (0.83-4.51); Absolute Neutrophil Count 4.4 X10^3/uL (2.0-7.7); Basophil# 0.05 X10^3/uL; Basophil% 0.7 % (0-1); Eosinophil# 0.06 X10^3/uL; Eosinophils% 0.9 % (0-5); Hematocrit 40.1 % (37-47); Hemoglobin 12.8 g/dL (12.0-15.0); Lymphocyte # 2.07 X10^3/ul (0.83-4.51); Lymphocyte % 29.6 % (19-41); Mean Corp Hgb Conc 31.9 g/dL (32-36); Mean Corpuscular Hgb 28.4 pg (27.0-32.0); Mean Corpuscular Volume 89.1 fL (81-99); Mean Platelet Vol. 10.3 fl (6.2-12.0); Monocyte# 0.39 X10^3/uL; Monocyte% 5.6 % (0-10); NRBC Flagged by Analyzer 0 % (0-5); Neutrophil # 4.41 X10^3/uL (2.7-7.7); Neutrophil % 62.9 % (47-70); Platelet Count 269 K/mm3 (150-450); RBC Distribution Width CV 12.1 % (11.6-14.6); RBC Distribution Width SD 39.7 fl (35.1-43.9)
--- NOTE | 2024-05-05 17:05 | RAD_ITS ---
EXAM: XR CHEST, 1 VIEW CLINICAL INDICATION: SOB TECHNIQUE: Frontal view of the chest. COMPARISON: No relevant prior studies available. FINDINGS: LUNGS AND PLEURAL SPACES: Unremarkable. No consolidation or edema. No pneumothorax. No effusion. HEART: Unremarkable. Cardiac silhouette not enlarged. MEDIASTINUM: Central airways and mediastinal contour are unremarkable. BONES/JOINTS: Unremarkable. No acute fracture. SOFT TISSUES: Unremarkable. RAD/Chest 1 View (Portable) IMPRESSION: No radiographic evidence of acute cardiopulmonary disease. Electronically Signed: Devin Rayo MD at 17:38 EDT ,
--- NOTE | 2024-05-05 17:05 | RAD_ITS ---
EXAM: XR RIGHT HIP WITH PELVIS WHEN PERFORMED, 2 OR 3 VIEWS CLINICAL INDICATION: hip pain TECHNIQUE: Two or three views of the right hip with pelvis when performed. COMPARISON: No relevant prior studies available. FINDINGS: BONES/JOINTS: Degenerative findings in both hips. No displaced fracture. No destructive or sclerotic lesions. Note that overlapping bowel shadows may however obscure fine detail. Sacroiliac joint is unremarkable. No widening of the pubic symphysis. SOFT TISSUES: Unremarkable. No soft tissue swelling or gas. RAD/HIP, UNI W/ Pelvis 2-3 Views IMPRESSION: Degenerative findings in both hips. Electronically Signed: Devin Rayo MD at 18:02 EDT ,
[2024-05-05 17:26] LABS: Bedside Glucose 123 mg/dL (74-106)
[2024-05-05 17:29] LABS: ALB/GLOB Ratio 1.3 RATIO (0.9-2.4); AST(SGOT) 21 U/L (15-37); Alanine Aminotransfer ALT/SGPT 18 U/L (13-56); Albumin, Serum 4.3 g/dL (3.2-5.0); Alkaline Phosphatase 86 U/L (45-117); Anion Gap 8 (5-15); BUN 13 mg/dL (7-18); BUN/Creat Ratio 14.4 RATIO (10-20); Calcium,Total 9.2 mg/dL (8.5-10.1); Chloride 105 mmol/L (98-107); EST Glomerular Filtration Rate 69 mL/min (>60); Est Glom Filt Rate - Afr Amer 83 mL/min (>60); Estimated Creatinine Clearance 55.86 ml/min; Globulin 3.2 g/dL (2.2-4.2); Glucose 115 mg/dL (74-106); Potassium 3.5 mmol/L (3.5-5.1); Protein, Total 7.5 g/dL (6.4-8.2); Sodium Level 137 mmol/L (136-145); Troponin-I HS 16 pg/mL (3.0-54.0)
--- NOTE | 2024-05-05 17:40 | CM.ED ---
Social Work: Date of referral: 05/05/24 Reason for referral: High levels of anxiety due to thoughts of having stroke or heart attack. Referred by: Social Work identification Patient consented to visit by medical social consultant. Patient's daughter Sharonda was also present in the room upon arrival and was showing lot's of verbal and emotional support to patient and offering words of encouragement. Patient's daughter was calm/relaxed and soothing towards patient. Patient was almost asleep in the hospital bed, eyes puffy from what appeared to be from crying. Patient remained tearful throughout the visit. Patient stated she was scared because symptoms had gotten progressively worse. Patient complained of her right hip hurting, her legs feeling very tight and at one point hardly being able to walk. Patient described pain and weakness and was also worried she could be having a blood clot. Patient kept trying to fall asleep during the visit due to medication patient reported she had been given to help calm her nerves and for this reason, visit was concluded so patient could rest. Patient and her daughter denied any additional needs or concerns at this time. Basilia Lr, CARD PLACER, [employer]IT[employer]ST [employer]ING
[2024-05-05] MEDS: Ketorolac 15 MG/ML Vial IV (18:41)
[2024-05-05 18:44] VITALS: BP 120/65; PULSE 65; RESP 16; TEMP 36.4; O2SAT 99
== END 2024-05-05 18:46 | disposition home or self-care (01) ==
PROVIDERS: Nurse Practitioner; Emergency Provider Emergency Medicine; Visit Provider Emergency Medicine
DX: M16.11 Unilateral primary osteoarthritis, right hip (principal); F41.9 Anxiety disorder, unspecified
CPT/HCPCS: 71045; 73502; 80053; 82962; 84484; 85025; 93005; 96361; 96374; 96375; 99284; J7030

== ENCOUNTER 2024-06-25 08:39 | Emergency (ER) | payer OTHER, SELFPAY ==
[2024-06-25 08:40] VITALS: BP 164/81; PULSE 74; RESP 18; TEMP 36.4; O2SAT 100; BMI 23.1
[2024-06-25 08:49] VITALS: TEMP 36.4
--- NOTE | 2024-06-25 08:49 | CT_ITS ---
STUDY: CT BRAIN WITHOUT CONTRAST REASON FOR EXAM: Female, 53 years old. Injury/Pain RADIATION DOSAGE (If Supplied By Facility): CTDIvol = ( 44.99 ) mGy, DLP = ( 779.24 ) mGycm TECHNIQUE: Transaxial CT imaging of the brain was performed without administration of intravenous contrast material. Individualized dose optimization techniques were used for this CT. COMPARISON: No relevant priors. FINDINGS: Normal soft tissue structures. Normal calvarium. Normal size ventricles and extra-axial spaces for the patient''s age. Normal white matter tracts of the cerebral hemispheres. Normal basal ganglia and thalami. Normal brainstem. Normal cerebellum. There is no intracranial hemorrhage. There are no findings of an acute ischemic infarction. Normal visualized paranasal sinuses. CT/Brain/Head without Contrast IMPRESSION: Normal unenhanced CT scan of the brain. Electronically Signed: August Stanford MD at 10:06 EDT ,
--- NOTE | 2024-06-25 08:49 | CT_ITS ---
STUDY: CT CERVICAL SPINE WITHOUT CONTRAST REASON FOR EXAM: Female, 53 years old. Injury/Pain RADIATION DOSAGE (If Supplied By Facility): CTDIvol = ( 14.84 ) mGy, DLP = ( 328.98 ) mGycm TECHNIQUE: High resolution transaxial imaging was performed without contrast material. Sagittal and coronal images were reconstructed. Individualized dose optimization techniques were used for this CT. COMPARISON: None FINDINGS: Normal craniovertebral junction. Normal anterior atlantoaxial articulation. Normal odontoid process. There is straightening of the normal cervical lordosis. Normal vertebral bodies and posterior osseous elements. C2-3: Normal endplates. Normal disc height and morphology. Normal central canal and intervertebral neuroforamina. C3-4: Normal endplates. Normal disc height and morphology. Normal central canal and intervertebral neuroforamina. C4-5: 2 mm of anterolisthesis of C4 on C5. This may be acute or chronic. No spinal stenosis or neural foraminal stenosis. C5-6: Normal endplates. Normal disc height and morphology. Normal central canal and intervertebral neuroforamina. C6-7: Normal endplates. Normal disc height and morphology. Normal central canal and intervertebral neuroforamina. C7-T1: Normal endplates. Normal disc height and morphology. Normal central canal and intervertebral neuroforamina. Normal visualized soft tissue structures. CT/Spine Cervical without Contras IMPRESSION: No acute fracture. 2 mm of anterolisthesis of C4 on C5 with straightening of the normal lordotic curvature. This may be acute from trauma with ligamentous injury or chronic from mild degenerative disc disease. Clinical correlation and MRI may be useful. Electronically Signed: August Stanford MD at 9:55 EDT ,
[2024-06-25] MEDS: Ondansetron 4 MG/2 ML Vial IV (08:54)
[2024-06-25] MEDS: fentaNYL 100 MCG/2 ML Ampul 50 MCG IM (08:55)
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
--- NOTE | 2024-06-25 09:30 | RAD_ITS ---
STUDY: X-RAY - LUMBAR SPINE REASON FOR EXAM: Female, 53 years old. Injury/Pain TECHNIQUE: 2 view(s) of the lumbar spine were obtained. COMPARISON: None FINDINGS: Normal lumbar lordosis. There is no substantial scoliosis. There is a normal alignment of the vertebrae. Normal vertebral bodies and endplates. Normal disc space heights. The soft tissue structures are unremarkable. RAD/Lumbar Spine 2 or 3 Views IMPRESSION: Normal x-ray examination of the lumbar spine. Electronically Signed: August Stanford MD at 10:34 EDT ,
--- NOTE | 2024-06-25 09:30 | RAD_ITS ---
STUDY: X-RAY - RIGHT TIBIA AND FIBULA REASON FOR EXAM: Female, 53 years old. Injury/Pain TECHNIQUE: 2 view(s) of the tibia and fibula were obtained. COMPARISON: None. FINDINGS: Normal visualized tibia. Normal visualized fibula. The soft tissue structures are unremarkable. RAD/Tibia & Fibula 2 Views IMPRESSION: Normal x-ray examination of the tibia and fibula. Electronically Signed: August Stanford MD at 10:34 EDT ,
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
--- NOTE | 2024-06-25 09:30 | RAD_ITS ---
STUDY: X-RAY - RIGHT KNEE REASON FOR EXAM: Female, 53 years old. Injury/Pain TECHNIQUE: 2 view(s) of the knee. COMPARISON: None. FINDINGS: Normal visualized distal femur. Normal visualized proximal tibia and fibula. Normal proximal tibiofibular articulation. Normal medial femorotibial compartment. Normal lateral femorotibial compartment. Normal patellofemoral articulation. The soft tissue structures are unremarkable. RAD/Knee 1 or 2 Views IMPRESSION: Normal x-ray examination of the knee. Electronically Signed: August Stanford MD at 10:37 EDT ,
--- NOTE | 2024-06-25 09:30 | RAD_ITS ---
STUDY: X-RAY - THORACIC SPINE REASON FOR EXAM: Female, 53 years old. Injury/Pain TECHNIQUE: 2 view(s) of the thoracic spine were obtained. COMPARISON: 12/10/2015 FINDINGS: Normal kyphosis of the thoracic spine. There is no substantial scoliosis. Normal thoracic vertebrae and endplates. Normal disc space heights. The soft tissue structures are unremarkable. RAD/Thoracic Spine 3 Views IMPRESSION: Normal x-ray examination of the thoracic spine. Electronically Signed: August Stanford MD at 10:33 EDT ,
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
[2024-06-25] MEDS: Morphine 4 MG/ML Syringe IV ×2 (10:14→11:10)
[2024-06-25 10:28] LABS: Absolute Lymphocyte Count 1.76 X10^3/uL (0.83-4.51); Absolute Neutrophil Count 6.5 X10^3/uL (2.0-7.7); Basophil# 0.05 X10^3/uL; Basophil% 0.6 % (0-1); Eosinophil# 0.04 X10^3/uL; Eosinophils% 0.5 % (0-5); Hematocrit 41.2 % (37-47); Hemoglobin 12.9 g/dL (12.0-15.0); Lymphocyte # 1.76 X10^3/ul (0.83-4.51); Lymphocyte % 19.8 % (19-41); Mean Corp Hgb Conc 31.3 g/dL (32-36); Mean Corpuscular Hgb 28.4 pg (27.0-32.0); Mean Corpuscular Volume 90.7 fL (81-99); Mean Platelet Vol. 10.4 fl (6.2-12.0); Monocyte# 0.47 X10^3/uL; Monocyte% 5.3 % (0-10); NRBC Flagged by Analyzer 0 % (0-5); Neutrophil # 6.53 X10^3/uL (2.7-7.7); Neutrophil % 73.5 % (47-70); Platelet Count 282 K/mm3 (150-450); RBC Distribution Width CV 12.1 % (11.6-14.6); RBC Distribution Width SD 40.5 fl (35.1-43.9); Red Blood Count 4.54 M/mm3 (4.2-5.4); White Blood Count 8.9 K/mm3 (4.4-11.0)
[2024-06-25 10:40] VITALS: BP 128/85; PULSE 68; RESP 17; O2SAT 99
[2024-06-25 10:42] LABS: ALB/GLOB Ratio 1.2 RATIO (0.9-2.4); AST(SGOT) 19 U/L (15-37); Alanine Aminotransfer ALT/SGPT 17 U/L (13-56); Albumin, Serum 4.1 g/dL (3.2-5.0); Alkaline Phosphatase 86 U/L (45-117); Anion Gap 5 (5-15); BUN 25 mg/dL (7-18); BUN/Creat Ratio 31.5 RATIO (10-20); Calcium,Total 9.6 mg/dL (8.5-10.1); Chloride 105 mmol/L (98-107); Creatinine, Serum 0.79 mg/dL (0.55-1.02); EST Glomerular Filtration Rate 80 mL/min (>60); Est Glom Filt Rate - Afr Amer 97 mL/min (>60); Estimated Creatinine Clearance 63.64 ml/min; Globulin 3.5 g/dL (2.2-4.2); Glucose 93 mg/dL (74-106); Potassium 3.8 mmol/L (3.5-5.1); Protein, Total 7.6 g/dL (6.4-8.2); Sodium Level 136 mmol/L (136-145)
[2024-06-25 11:15] VITALS: BP 122/77; PULSE 67; RESP 15; TEMP 36.4; O2SAT 100
== END 2024-06-25 11:26 | disposition short-term general hospital (02) ==
PROVIDERS: Emergency Provider Emergency Medicine; Visit Provider Emergency Medicine
DX: S19.9XXA Unspecified injury of neck, initial encounter (principal); R53.1 Weakness; F17.200 Nicotine dependence, unspecified, uncomplicated; V89.2XXA Person injured in unspecified motor-vehicle accident, traffic, initial encounter
CPT/HCPCS: 70450; 71046; 72072; 72100; 72125; 73502; 73560; 73590; 80053; 85025; 85610; 96372; 96374; 96375; 96376; 99284; A4216; J2405

== ENCOUNTER → 2024-08-15 | Outpatient (CLI) | payer OTHER, SELFPAY ==
--- NOTE | 2024-08-15 11:29 | RAD_ITS ---
STUDY: X-RAY - LUMBAR SPINE REASON FOR EXAM: Female, 53 years old. Left-sided back pain TECHNIQUE: 2 view(s) of the lumbar spine were obtained. COMPARISON: 06/25/2024 FINDINGS: Normal lumbar lordosis. There is no substantial scoliosis. There is a normal alignment of the vertebrae. Normal vertebral bodies and endplates. Normal disc space heights. The soft tissue structures are unremarkable. RAD/Lumbar Spine 2 or 3 Views IMPRESSION: Normal x-ray examination of the lumbar spine. Electronically Signed: Gal Lockhart MD at 15:34 EDT ,
== END | disposition home or self-care (01) ==
PROVIDERS: PCP Family Medicine; Referring Provider Family Medicine; Visit Provider Family Medicine
DX: M54.32 Sciatica, left side (principal)
CPT/HCPCS: 72100

== ENCOUNTER → 2024-12-03 | Outpatient (CLI) | payer MEDICAID, SELFPAY ==
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
== END | disposition home or self-care (01) ==
LOC: MRI 16:03
PROVIDERS: PCP Family Medicine; Referring Provider Orthopaedic Surgery Orthopaedic Surgery of the Spine; Visit Provider Orthopaedic Surgery Orthopaedic Surgery of the Spine
DX: M43.16 Spondylolisthesis, lumbar region (principal)
CPT/HCPCS: 72148